=== PATIENT | male | born 1960 | race Native Hawaiian/Other Pacific Islander ===

== ENCOUNTER 2022-03-04 20:09 | Inpatient (IN) | payer OTHER ==
[~2022-03-04] VITALS: Ht 162.6 cm; Wt 59.0 kg
--- NOTE | 2022-03-04 20:25 | NUR ---
XRAY AT BEDSIDE.
--- NOTE | 2022-03-04 20:42 | NUR ---
LAB AT BEDSIDE.
[2022-03-04 21:00] LABS: HEMATOCRIT 49.8 % (36.7-47.1); MEAN CORPUSCULAR HEMOGLOBIN 22.2 uug (23.8-33.4); MEAN CORPUSCULAR VOLUME 71.4 fL (73.0-96.2); PLATELET COUNT (AUTO) 235 K/uL (152-348)
[2022-03-04 21:18] LABS: ALANINE AMINOTRANSFERASE 29 U/L (16-63); ALKALINE PHOSPHATASE 62 U/L (50-136); ASPARTATE AMINOTRANSFERASE 26 U/L (15-37); BILIRUBIN,DIRECT 0.1 mg/dL (0.0-0.2); BILIRUBIN,TOTAL 0.3 mg/dL (0.2-1.0); CHLORIDE 95 mmol/L (98-107); CREATININE 0.5 mg/dL (0.6-1.3); GLUCOSE 189 mg/dL (74-106); TOTAL PROTEIN, SERUM 7.7 g/dL (6.4-8.2); UREA NITROGEN, BLOOD 24 mg/dL (7-18)
[2022-03-04 21:25] LABS: CARBON DIOXIDE 40 mmol/L (21-32)
[2022-03-04] MEDS ORDERED: BISA10SU61 RC (21:37)
[2022-03-04] MEDS ORDERED: PRED20TA PO (21:37)
[2022-03-04] MEDS ORDERED: MAGN400O6 PO (21:37)
[2022-03-04] MEDS ORDERED: NA P133E RC (21:37)
[2022-03-04] MEDS ORDERED: lispro insulin SUBCUT (21:37)
[2022-03-04] MEDS ORDERED: [UNRECOGNIZED DRUG - MIXTURE] PO (21:37)
[2022-03-04] MEDS ORDERED: ACET-2154 PO (21:37)
[2022-03-04] MEDS ORDERED: IV NS 1000 ML 1,000 ML IV ONE (23:30)
[2022-03-04 23:44] LABS: ABG BASE EXCESS 7.2 mmol/L; ABG HCO3 37.7 mmol/L; ABG PCO2 81.8 mmHg (35.0-45.0); ABG PH 7.281 (7.350-7.450); ABG PO2 64.2 mmHg (75.0-100.0); ABG SITE RIGHT RADIAL; ABG TOTAL HEMOGLOBIN 15.9 G/dL (13.5-18.0); COHb 0.9 % (0.5-1.5); MetHb 0.3 % (0.0-1.5); O2Hb 91.2 % (94.0-97.0); VENT MODE Nasal Cannula
--- NOTE | 2022-03-04 23:50 | NUR ---
PT NOTED TO BE SOILED, PROPER PERINEAL CARE RENDERED. NOTED TO BE CLEAN AND DRY.
[2022-03-05] VITALS (58 sets, daily range): BP systolic 61–142; BP diastolic 37–83
[2022-03-05] MEDS ORDERED: methylPREDNISolone SOD SUCC 125 MG/2 ML VIAL IV ONE
[2022-03-05] MEDS ORDERED: methylPREDNISolone SOD SUCC 125 MG/2 ML VIAL ONE (00:11)
--- NOTE | 2022-03-05 01:36 | NUR ---
PT RESTING IN BED EYES CLOSED, BREATHING EVEN AND UNLABORED.
[2022-03-05] MEDS ORDERED: AZITHROMYCIN IV 500 MG in IV DEXTROSE 5% 250 ML IV ONE (01:45)
[2022-03-05] MEDS ORDERED: CEFTRIAXONE 1 G in IV DEXTROSE 5% 50 ML IV ONE (01:45)
[2022-03-05 01:59] LABS: ABG BASE EXCESS 5.8 mmol/L; ABG HCO3 37.6 mmol/L; ABG PCO2 95.3 mmHg (35.0-45.0); ABG PH 7.214 (7.350-7.450); ABG PO2 153.3 mmHg (75.0-100.0); ABG SITE LEFT RADIAL; ABG TOTAL HEMOGLOBIN 15.1 G/dL (13.5-18.0); COHb 0.9 % (0.5-1.5); CPAP,BG 6 cmH20; MetHb 0.4 % (0.0-1.5); VENT MODE BIPAP
[2022-03-05] MEDS ORDERED: CEFTRIAXONE /D5W 50ML IVPB **ER PYXIS IV ONE (02:03)
[2022-03-05] MEDS ORDERED: AZITHROMYCIN 500MG/ D5W 250ML IVPB **ER PYXIS ONLY IV ONE (02:03)
[2022-03-05] MEDS ORDERED: NOREPINEPHRINE BITARTRATE 4 MG/4 ML VIAL IV ONE (02:32)
[2022-03-05] MEDS ORDERED: PROPOFOL 100 ML ONE (02:37)
[2022-03-05] MEDS ORDERED: NOREPINEPHRINE BITARTRATE 8 MG in IV NORMAL SALINE 242 ML IV PRN (02:45)
--- NOTE | 2022-03-05 03:02 | NUR ---
LEVOPHED STARTED AT 0300 STARTED ON 0.1MCG/KG/MIN ON LT FA 20 G.
[2022-03-05] MEDS ORDERED: NOREPINEPHRINE BITARTRATE 8 MG in IV NORMAL SALINE 250 ML IV PRN (03:30)
[2022-03-05] MEDS ORDERED: IV D5 1/2 NS 1000 ML 1,000 ML IV PRN (03:30)
[2022-03-05] MEDS ORDERED: ONDANSETRON 4 MG/2 ML VIAL IV PRN (03:30)
[2022-03-05] MEDS ORDERED: DEXTROSE 50% 50 ML DISP.SYRIN IV PRN (03:30)
--- NOTE | 2022-03-05 03:30 | NUR ---
PT INTUBATED AT 0317, RT, DR. STOUT AND RN AT BEDSIDE. 22CM AT LIP. VENT SETTING: RR: 20 400 PEEP 5 50% TITRATE
[2022-03-05] MEDS ORDERED: PROPOFOL 100 ML IV PRN (04:00)
[2022-03-05] MEDS ORDERED: ALBUTEROL SULFATE 2.5 MG/3 ML NEBU ONE ×2 (04:18→07:12)
[2022-03-05] MEDS ORDERED: IPRATROPIUM BROMIDE 0.5 MG/2.5 ML NEBU ONE ×2 (04:18→07:12)
[2022-03-05] MEDS: ALBUTEROL SULFATE 2.5 MG/3 ML NEBU IH SCH ×6 (04:19→23:29)
[2022-03-05] MEDS: IPRATROPIUM BROMIDE 0.5 MG/2.5 ML NEBU NEB SCH ×6 (04:19→23:28)
[2022-03-05 05:03] LABS: ABG BASE EXCESS 5.6 mmol/L; ABG HCO3 28.9 mmol/L; ABG PCO2 37.8 mmHg (35.0-45.0); ABG PH 7.501 (7.350-7.450); ABG PO2 62.9 mmHg (75.0-100.0); ABG SITE LEFT RADIAL; ABG TOTAL HEMOGLOBIN 15.2 G/dL (13.5-18.0); COHb 1.2 % (0.5-1.5); MetHb 0.2 % (0.0-1.5); O2Hb 94.9 % (94.0-97.0); VENT MODE VENT - A/C; VT, ABG 400 mL
[2022-03-05] MEDS: BLOOD SUGAR DIAGNOSTIC 1 EACH STRIP VI SCH ×4 (06:00→23:52)
[2022-03-05] MEDS ORDERED: PIPERACILLIN SODIUM/TAZOBACTAM 3.375 G in IV DEXTROSE 5% 50 ML IV SCH (06:00)
--- NOTE | 2022-03-05 06:59 | NUR ---
GAVE REPORT TO MORNING SHIFT. PT NOTED TO BE IN BED, VSS. BREATHING EVEN AND UNLABORED, AFEBRILE.
[2022-03-05 07:19] LABS: HEMATOCRIT 45.7 % (36.7-47.1); MEAN CORPUSCULAR HEMOGLOBIN 22.5 uug (23.8-33.4); MEAN CORPUSCULAR VOLUME 71.5 fL (73.0-96.2); PLATELET COUNT (AUTO) 310 K/uL (152-348)
--- NOTE | 2022-03-05 07:20 | NUR ---
RECEIVED PT ON AC 16 400 +5 50% eETT 7.0 @ 22CM
[2022-03-05 07:31] LABS: ALANINE AMINOTRANSFERASE 26 U/L (16-63); ALKALINE PHOSPHATASE 61 U/L (50-136); ASPARTATE AMINOTRANSFERASE 30 U/L (15-37); BILIRUBIN,TOTAL 0.8 mg/dL (0.2-1.0); CARBON DIOXIDE 32 mmol/L (21-32); CHLORIDE 95 mmol/L (98-107); CREATININE 0.4 mg/dL (0.6-1.3); GLUCOSE 202 mg/dL (74-106); MAGNESIUM 1.8 mg/dL (1.8-2.4); PHOSPHOROUS 1.3 mg/dL (2.5-4.9); POTASSIUM 5.4 mmol/L (3.5-5.1); TOTAL PROTEIN, SERUM 7.7 g/dL (6.4-8.2); UREA NITROGEN, BLOOD 25 mg/dL (7-18)
[2022-03-05] MEDS: PIPERACILLIN SODIUM/TAZOBACTAM 3.375 G in IV DEXTROSE 5% 100 ML IV SCH ×2 (07:45→21:13)
[2022-03-05] MEDS ORDERED: PIPERACILLIN/TAZOBACTAM/D5W 50 ML IV ONE (07:58)
[2022-03-05 07:59] LABS: BAND % (MANUAL) 5 % (0-10); LYMPHOCYTES % (MANUAL) 9 % (20-40); NEUTROPHILS % (MANUAL) 86 % (42-75); THYROID STIMULATING HORMONE 0.461 mIU/mL (0.358-3.740)
--- NOTE | 2022-03-05 08:45 | NUR ---
REPORT WAS GIVEN TO CCU RN PT WAS TRANSFERED TO CCU ROOM #1.
--- NOTE | 2022-03-05 08:49 | NUR ---
Received pt. from Sharon DUMONT pt. On ventilator ETT 7.0 23LL A/C of 16, Tv 400, Peep +5 and FIO2 of 50%. Patient noted to be restless agitated scratching staff upon transferring propofol with coughing and gagging. propofol at this time running at 5mcg/kg/min. titration initiated for adequate sedation and transfer pt. from [facility] to bed. Patient received on Bilateral wrist restrains that were dcd at this time. Cardiac-cai pt. on Sinus tachycardia in the 120-128. sbp 101/68 levophed running ar 0.2mcg/kg/min. IV lines patent. will continue with care plan.
--- NOTE | 2022-03-05 09:47 | NUR ---
Attending notified of pt's arrival to the unit.
--- NOTE | 2022-03-05 09:55 | NUR ---
TITRATED FIO2 DOWN TO 45%. SPO2 100% HR119. NURSE MADE AWARE.
[2022-03-05] MEDS ORDERED: BISACODYL 10 MG SUPP.RECT RC PRN (10:30)
[2022-03-05] MEDS: PANTOPRAZOLE SODIUM 40 MG VIAL IV SCH (11:10)
[2022-03-05] MEDS: methylPREDNISolone SOD SUCC 40 MG/ML VIAL IV SCH ×3 (11:10→21:13)
[2022-03-05] MEDS: ENOXAPARIN SODIUM 40 MG/0.4 ML DISP.SYRIN SQ SCH (11:11)
[2022-03-05] MEDS: PROPOFOL 100 ML IV PRN ×2 (11:52→18:39)
[2022-03-05] MEDS ORDERED: SODIUM PHOSPHATE MM 15 MMOL in IV NORMAL SALINE 250 ML IV ONE (12:30)
[2022-03-05] MEDS: IV D5/ 0.9% NACL 1,000 ML IV PRN ×2 (12:36→22:20)
[2022-03-05] MEDS: INSULIN REGULAR, HUMAN 300 UNIT/3 ML VIAL SQ PRN ×3 (12:38→23:53)
[2022-03-05] MEDS: NOREPINEPHRINE BITARTRATE 8 MG in IV NORMAL SALINE 242 ML IV PRN (13:07)
[2022-03-05 15:15] LABS: *BILIRUBIN,URIN NEGATIVE (NEGATIVE); *CLARITY,URINE CLEAR (CLEAR); *COLOR,URINE YELLOW (YELLOW); *KETONES,URINE 2+ (NEGATIVE); *UROBILINOGEN,URINE 0.2 E.U./dl (NORMAL); LEUKOCYTE ESTERASE ,URINE NEGATIVE (NEGATIVE); NITRITE, URINE NEGATIVE (NEGATIVE); UGLUCOSE NEGATIVE (NEGATIVE)
[2022-03-05 15:16] LABS: *BLOOD, URINE TRACE (NEGATIVE)
[2022-03-05 15:20] LABS: WBC,URINE NONE SEEN /HPF (0-3)
[2022-03-05 15:21] LABS: BACTERIA,URINE FEW /HPF (NONE SEEN); SQUAMOUS EPITHELIAL CELL,UR FEW /HPF (NONE SEEN)
--- NOTE | 2022-03-05 16:10 | NUR ---
Picc line R.N. in the unit to insert line.
--- NOTE | 2022-03-05 16:39 | NUR ---
DOUGLASE picc line in place and as stated by Luz Elena PICC ramón Man.Zulay. PICC ready to be used.
[2022-03-06] VITALS (91 sets, daily range): BP systolic 73–155; BP diastolic 32–92
[2022-03-06] MEDS: ALBUTEROL SULFATE 2.5 MG/3 ML NEBU IH SCH ×6 (03:53→23:02)
[2022-03-06] MEDS: IPRATROPIUM BROMIDE 0.5 MG/2.5 ML NEBU NEB SCH ×6 (03:53→23:02)
--- NOTE | 2022-03-06 04:20 | NUR ---
PATIENT ON CONT BOTELLO VENT WITH 7.0 ET/TUBE IN PLACE AND SECURED WITH ANCHOR FAST, MOVE Q2 HOURS, PT IS SEDATED, NEB INLINE Q4 X 3 WITH ALBUTEROL/ ATROVENT TOLL WELL INLINE, SUCTION LIGHT PALE YELL TINGE SECRETIONS, AND SUCTION MOUTH WITH YANKAUER, NO VENT CHANGES MADE AT THIS TIME, VENT PLUGGED INTO RED OUTLET, ABG DUE BEFORE 0700, CHANGE HMNoé SANDHUP Addendum: 03/06/22 at 3483 by VAL NAVARRO RT Amended: Links added.
[2022-03-06] MEDS: PROPOFOL 100 ML IV PRN ×4 (04:42→23:12)
[2022-03-06 05:07] LABS: HEMATOCRIT 37.2 % (36.7-47.1); MEAN CORPUSCULAR HEMOGLOBIN 21.9 uug (23.8-33.4); MEAN CORPUSCULAR VOLUME 69.5 fL (73.0-96.2); PLATELET COUNT (AUTO) 236 K/uL (152-348)
[2022-03-06] MEDS: BLOOD SUGAR DIAGNOSTIC 1 EACH STRIP VI SCH ×3 (05:22→18:00)
[2022-03-06 05:24] LABS: CARBON DIOXIDE 32 mmol/L (21-32); CHLORIDE 105 mmol/L (98-107); CREATININE 0.3 mg/dL (0.6-1.3); GLUCOSE 234 mg/dL (74-106); MAGNESIUM 1.6 mg/dL (1.8-2.4); PHOSPHOROUS 2.4 mg/dL (2.5-4.9); POTASSIUM 2.9 mmol/L (3.5-5.1); UREA NITROGEN, BLOOD 17 mg/dL (7-18)
[2022-03-06] MEDS: INSULIN REGULAR, HUMAN 300 UNIT/3 ML VIAL SQ PRN ×3 (05:25→19:07)
[2022-03-06] MEDS: methylPREDNISolone SOD SUCC 40 MG/ML VIAL IV SCH ×3 (05:28→21:04)
[2022-03-06] MEDS: PIPERACILLIN SODIUM/TAZOBACTAM 3.375 G in IV DEXTROSE 5% 100 ML IV SCH ×3 (05:29→21:04)
[2022-03-06 05:54] LABS: ABG BASE EXCESS 4.1 mmol/L; ABG HCO3 26.9 mmol/L; ABG PCO2 34.5 mmHg (35.0-45.0); ABG SITE LEFT RADIAL; ABG TOTAL HEMOGLOBIN 13.1 G/dL (13.5-18.0); COHb 0.4 % (0.5-1.5); MetHb 0.3 % (0.0-1.5); O2Hb 99.1 % (94.0-97.0); VENT MODE VENT - A/C; VT, ABG 400 mL
--- NOTE | 2022-03-06 06:18 | NUR ---
ABG WAS DONE VENT CHANGE ; 06:12 , DECREASE FIO2 @ TO 30%, BASED ON ABG, ZAINA DUMONT. NOTIFIED .Debra SANDHUP Addendum: 03/06/22 at 0620 by VAL NAVARRO RT Amended: Links added.
--- NOTE | 2022-03-06 06:23 | NUR ---
Left pt. On ventilator ETT 7.0 23LL A/C of 16, Tv 400, Peep +5 and FIO2 of 30% saturation above 95%, no tachypnea. neuro-cai adequately sedated with propofol running at 50mcg/kg/min, pupils MANUEL. Cardiac-cai pt. on NSR to low sinus tachy, levophed running ar 0.08mcg/kg/min. NG-T clamped and awaiting feeding recommendations. calderon to gravity with minimal outpu. IV lines patent. will endorse for continuity of care.
--- NOTE | 2022-03-06 07:14 | NUR ---
Report given to Terri Graf.
[2022-03-06] MEDS ORDERED: POTASSIUM CHLORIDE 20 MEQ POWDER PACKET GT ONE (08:00)
[2022-03-06] MEDS: POTASSIUM CHLORIDE 50 ML IV SCH ×4 (08:35→11:52)
[2022-03-06] MEDS: PANTOPRAZOLE SODIUM 40 MG VIAL IV SCH (08:35)
[2022-03-06] MEDS: IV D5/ 0.9% NACL 1,000 ML IV PRN (08:36)
[2022-03-06] MEDS: ENOXAPARIN SODIUM 40 MG/0.4 ML DISP.SYRIN SQ SCH (08:36)
--- NOTE | 2022-03-06 10:35 | NUR ---
WOUND CARE CONSULT: PT PRESENTS WITH SCARRING TO SACRAL/BUTTOCKS AREA, TO LEFT INNER THIGH AND HEALING WOUND TO RT INNER THIGH, PRESENT ON ADMISSION.RECOMMENDATIONS MADE FOR SKIN PROTECTION AND WOUND CARE. DISCUSSED WITH NURSING STAFF. MD IN AGREEMENT WITH PLAN OF CARE.
[2022-03-06] MEDS: MAGNESIUM SULFATE/D5W 100 ML IV SCH ×2 (10:44→11:51)
[2022-03-06] MEDS ORDERED: REMEDY ESSENTIAL ZINC PASTE 113 GM TOP PRN (10:45)
--- NOTE | 2022-03-06 11:20 | NUR ---
Pt received on continuous mechanical ventilation via 7.0 ETT secured at 23cm @ the lip. Pt rec'd on Valles vent with ordered settings of A/C 16, VT 400, PEEP +5, FIO2 30% . Changed Rate to 14, per MD orders. JULIA Graf notified. Pt tolerating vent settings well. Suctioned moderated amounts of white thin secretions. Bag/valve/mask at bedside. HME changed. Vent plugged into emergency red outlet. Will continue to monitor.
[2022-03-06] MEDS: NOREPINEPHRINE BITARTRATE 8 MG in IV NORMAL SALINE 242 ML IV PRN (12:02)
[2022-03-06] MEDS ORDERED: POTASSIUM PHOSPHATE MM 7.5 MMOL in IV NORMAL SALINE 97.5 ML IV ONE (18:00)
--- NOTE | 2022-03-06 19:00 | NUR ---
Received report from JULIA Graf. Patient is sedated ET 7.0, LL23, attached to vent with the following settings AC 14, TV 400, PEEP 5, FiO2 30%, O2 sat 100%. SR on the monitor, HR 83. NG tube at L nare TF Glucerna 1.2 @10mls/hr, no gastric residual noted, tolerating well. IV site patent and flushed with ongoing fluids Propofol @50mcg/kg/min, Levophed @0.02mcg/kg/min, D5NS @100mls/hr. Nursing assessment done. Calero catheter draining well to gravity. Safety measures maintained at all times. Will continue to monitor closely.
--- NOTE | 2022-03-06 19:46 | NUR ---
Report given to JULIA Ramirez. SR ST at 107. Sedated and intubated; settings are as follows TV at 400, PEEP of 5, rate or 14 and FiO2 30%. NGT feeding Glucerna 1.2, tolerating well with small amount of residual. Calero care provided, urine output at minimum- clear and erika color. correction assessment done, no new skin break down noted. Wound care provided in the inner thigh. Safety and comfort measures maintained t/o shift. All meds given as ordered.
[2022-03-06] MEDS: REMEDY ESSENTIAL ZINC PASTE 113 GM TOP SCH (20:24)
--- NOTE | 2022-03-06 20:39 | NUR ---
Patient received orally intubated with 7.5 ET Tube, ~23cm Lip line. Currently tolerating ordered vent settings of AC 14, 400, +5peep, 30% FiO2. No signs or symptoms of respiratory distress noted at this time. Suctioned scant amounts of thin white secretions. Oral suction : thick moderate white. Inline treatments reviewed and administered without complications. Vent plugged in to red outlet, ambu bag at bedside. ET tube locations changed throughout shift for skin integrity. Alarms are on/audible. Will continue to monitor throughout shift.
--- NOTE | 2022-03-06 22:23 | NUR ---
Sputum specimen done and sent to lab c/o RT Russell.
[2022-03-07] VITALS (93 sets, daily range): BP systolic 61–161; BP diastolic 40–127
[2022-03-07] MEDS: BLOOD SUGAR DIAGNOSTIC 1 EACH STRIP VI SCH ×5 (00:26→23:39)
[2022-03-07] MEDS: INSULIN REGULAR, HUMAN 300 UNIT/3 ML VIAL SQ PRN ×5 (00:28→23:43)
--- NOTE | 2022-03-07 01:50 | NUR ---
Minimal UO noted, bladder scan done which revealed 70-90cc. Called [facility] and spoke with Ama Gross NP. Per KARENA Gross, to give NS 500ml bolus. Noted and carried out.
[2022-03-07] MEDS ORDERED: IV NORMAL SALINE 500 ML IV ONE (02:00)
[2022-03-07] MEDS: ALBUTEROL SULFATE 2.5 MG/3 ML NEBU IH SCH ×6 (02:59→22:59)
[2022-03-07] MEDS: IPRATROPIUM BROMIDE 0.5 MG/2.5 ML NEBU NEB SCH ×6 (02:59→22:59)
[2022-03-07] MEDS: IV D5/ 0.9% NACL 1,000 ML IV PRN ×2 (04:42→14:18)
[2022-03-07] MEDS: PROPOFOL 100 ML IV PRN ×5 (04:43→21:16)
[2022-03-07 04:58] LABS: HEMATOCRIT 35.5 % (36.7-47.1); MEAN CORPUSCULAR HEMOGLOBIN 21.6 uug (23.8-33.4); MEAN CORPUSCULAR VOLUME 69.1 fL (73.0-96.2); PLATELET COUNT (AUTO) 187 K/uL (152-348)
[2022-03-07 05:07] LABS: CARBON DIOXIDE 28 mmol/L (21-32); CHLORIDE 110 mmol/L (98-107); CREATININE 0.2 mg/dL (0.6-1.3); GLUCOSE 174 mg/dL (74-106); MAGNESIUM 1.9 mg/dL (1.8-2.4); PHOSPHOROUS 2.9 mg/dL (2.5-4.9); POTASSIUM 3.6 mmol/L (3.5-5.1); UREA NITROGEN, BLOOD 10 mg/dL (7-18)
[2022-03-07] MEDS: PIPERACILLIN SODIUM/TAZOBACTAM 3.375 G in IV DEXTROSE 5% 100 ML IV SCH ×3 (05:24→21:17)
[2022-03-07] MEDS: methylPREDNISolone SOD SUCC 40 MG/ML VIAL IV SCH ×3 (05:24→21:17)
--- NOTE | 2022-03-07 06:00 | NUR ---
TF Glucerna 1.2 off [id number].
[2022-03-07 06:13] LABS: ABG BASE EXCESS 1.1 mmol/L; ABG HCO3 25.6 mmol/L; ABG PCO2 40.5 mmHg (35.0-45.0); ABG PH 7.419 (7.350-7.450); ABG PO2 141.7 mmHg (75.0-100.0); ABG SITE RIGHT RADIAL; ABG TOTAL HEMOGLOBIN 12.5 G/dL (13.5-18.0); COHb 0.2 % (0.5-1.5); MetHb 0.3 % (0.0-1.5); O2Hb 98.6 % (94.0-97.0); VENT MODE VENT - A/C; VT, ABG 400 mL
--- NOTE | 2022-03-07 08:12 | NUR ---
PT.WAS SEEN BY WITH NEW ORDERS.
[2022-03-07] MEDS ORDERED: POTASSIUM CHLORIDE 20 MEQ POWDER PACKET GT ONE (08:15)
[2022-03-07] MEDS: PANTOPRAZOLE SODIUM 40 MG VIAL IV SCH (08:17)
[2022-03-07] MEDS: ENOXAPARIN SODIUM 40 MG/0.4 ML DISP.SYRIN SQ SCH (08:18)
[2022-03-07] MEDS: REMEDY ESSENTIAL ZINC PASTE 113 GM TOP SCH ×2 (08:18→20:38)
[2022-03-07] MEDS: NOREPINEPHRINE BITARTRATE 8 MG in IV NORMAL SALINE 242 ML IV PRN (20:57)
[2022-03-08] VITALS (62 sets, daily range): BP systolic 82–139; BP diastolic 46–84
[2022-03-08] MEDS: PROPOFOL 100 ML IV PRN ×2 (01:10→06:08)
--- NOTE | 2022-03-08 02:30 | NUR ---
0050 Patient noted to have SR with inverted T wave on the monitor. 0105 Stat EKG done c/o RT Deandra and placed on chart. 0115 Called [facility] and spoke with Ama Gross NP regarding patient's EKG result. Per Renato THURSTON, to order stat troponin. 020 Spoke with Dat from lab re: troponin 181. Will relay to Renato THURSTON. 0215 Called [employer] exchange to page international guest coordinator doctor Renato THURSTON re: troponin results. Awaiting for callback. 226 Received new orders from Renato THURSTON. Per Renato THURSTON, repeat troponin in 6 hours, lovenox 1mg/kg pharmacy to dose SC Q12hr. Noted and carried out.
[2022-03-08] MEDS ORDERED: ENOXAPARIN SODIUM 60 MG/0.6 ML DISP.SYRIN SQ SCH (03:00)
[2022-03-08] MEDS: IPRATROPIUM BROMIDE 0.5 MG/2.5 ML NEBU NEB SCH ×5 (03:01→19:54)
[2022-03-08] MEDS: ALBUTEROL SULFATE 2.5 MG/3 ML NEBU IH SCH ×6 (03:01→19:55)
[2022-03-08] MEDS: PIPERACILLIN SODIUM/TAZOBACTAM 3.375 G in IV DEXTROSE 5% 100 ML IV SCH (05:09)
[2022-03-08] MEDS: methylPREDNISolone SOD SUCC 40 MG/ML VIAL IV SCH ×3 (05:10→21:11)
[2022-03-08] MEDS: BLOOD SUGAR DIAGNOSTIC 1 EACH STRIP VI SCH ×4 (05:16→23:19)
[2022-03-08 05:18] LABS: CARBON DIOXIDE 29 mmol/L (21-32); CHLORIDE 108 mmol/L (98-107); CREATININE 0.3 mg/dL (0.6-1.3); GLUCOSE 249 mg/dL (74-106); POTASSIUM 4.2 mmol/L (3.5-5.1); UREA NITROGEN, BLOOD 11 mg/dL (7-18)
[2022-03-08] MEDS: INSULIN REGULAR, HUMAN 300 UNIT/3 ML VIAL SQ PRN ×4 (05:18→23:22)
[2022-03-08 05:22] LABS: MAGNESIUM 1.8 mg/dL (1.8-2.4); PHOSPHOROUS 3.2 mg/dL (2.5-4.9)
[2022-03-08 05:35] LABS: HEMATOCRIT 36.9 % (36.7-47.1); MEAN CORPUSCULAR HEMOGLOBIN 21.6 uug (23.8-33.4); MEAN CORPUSCULAR VOLUME 69.9 fL (73.0-96.2); PLATELET COUNT (AUTO) 183 K/uL (152-348)
--- NOTE | 2022-03-08 06:00 | NUR ---
TF Glucerna 1.2 off [id number].
--- NOTE | 2022-03-08 07:34 | NUR ---
Patienr received orally intubated with 7.5 ETT @ approx 23cm at the lip. Patient on given settings of AC 14, 400, +5, 30% Fio2. Oral care done and PRN sxn provided. Alarms on and audible, and Valles vent plugged in red outlets. Ambubag at bedside. Will continue to monitor t/o shift.
[2022-03-08] MEDS: PANTOPRAZOLE SODIUM 40 MG VIAL IV SCH (08:38)
[2022-03-08] MEDS: ENOXAPARIN SODIUM 60 MG/0.6 ML DISP.SYRIN SQ SCH ×2 (08:39→20:13)
[2022-03-08] MEDS: REMEDY ESSENTIAL ZINC PASTE 113 GM TOP SCH ×2 (08:41→20:13)
[2022-03-08] MEDS: GLUCERNA 1.2 1000ML LIQUID GT PRN (08:43)
--- NOTE | 2022-03-08 10:13 | NUR ---
Pt.was seen by . with new orders.
--- NOTE | 2022-03-08 10:30 | NUR ---
PER PROPOFOL WAS STOP AT 1005 FOR WEANING /CPAP/POSS EXTUBATION.ABG 1100
[2022-03-08 11:18] LABS: ABG BASE EXCESS 2.1 mmol/L; ABG HCO3 26.4 mmol/L; ABG PCO2 39.9 mmHg (35.0-45.0); ABG PH 7.438 (7.350-7.450); ABG PO2 137.7 mmHg (75.0-100.0); ABG SITE LEFT RADIAL; ABG TOTAL HEMOGLOBIN 12.7 G/dL (13.5-18.0); COHb 0.4 % (0.5-1.5); CPAP,BG 10 cmH20; MetHb 0.3 % (0.0-1.5); O2Hb 98.4 % (94.0-97.0); VENT MODE VENT - CPAP
[2022-03-08] MEDS: IV D5/ 0.9% NACL 1,000 ML IV PRN ×2 (11:37→21:42)
--- NOTE | 2022-03-08 11:40 | NUR ---
PT.EXTUBATED,TOLERATED WELL,NO S/S OF DISTRESS.
--- NOTE | 2022-03-08 11:40 | NUR ---
Patient extubated post ABG, and CPAP trial. Placed on 2LPM N/C. Will continue to monitor throughout shift.
--- NOTE | 2022-03-08 15:57 | NUR ---
NATALIE MAR SHAREPOINT WEB DEVELOPER was updated with pt.condition and plan of care
--- NOTE | 2022-03-08 16:20 | NUR ---
, WAS NOTIFIED, PT BECAME TACHYPNEIC HR 130'S SOB USING ACCES. MUSCLE FOR BREATHING.CARE OUT NEW ORDERS FOR BIPAP.
--- NOTE | 2022-03-08 22:00 | NUR ---
PM care done. Linen changed.
[2022-03-09] VITALS (23 sets, daily range): BP systolic 85–162; BP diastolic 49–95
[2022-03-09] MEDS: IPRATROPIUM BROMIDE 0.5 MG/2.5 ML NEBU NEB SCH ×7 (00:04→23:51)
[2022-03-09] MEDS: ALBUTEROL SULFATE 2.5 MG/3 ML NEBU IH SCH ×7 (00:04→23:51)
--- NOTE | 2022-03-09 04:14 | NUR ---
PATIENT HAS BEEN ON BI/PAP ALL FINISH OPENER, WITH MED, MASK, MOVING A LITTLE, BUT KEEPING MASK, ON , SETTINGS, 15/5, RR20, FIO2 @ 30%, STABLE, GOOD OXYGENATION, ADJUST MASK, NEB INLINE Q4 X 3 , STABLE .D MELANIE SANDHUP Addendum: 03/09/22 at 0416 by VAL NAVARRO RT Amended: Links added.
[2022-03-09] MEDS: methylPREDNISolone SOD SUCC 40 MG/ML VIAL IV SCH ×3 (05:08→21:16)
[2022-03-09] MEDS: BLOOD SUGAR DIAGNOSTIC 1 EACH STRIP VI SCH ×4 (05:14→23:31)
[2022-03-09] MEDS: INSULIN REGULAR, HUMAN 300 UNIT/3 ML VIAL SQ PRN ×4 (05:17→23:33)
[2022-03-09 05:48] LABS: CARBON DIOXIDE 35 mmol/L (21-32); CHLORIDE 106 mmol/L (98-107); CREATININE 0.2 mg/dL (0.6-1.3); GLUCOSE 150 mg/dL (74-106); POTASSIUM 3.9 mmol/L (3.5-5.1); UREA NITROGEN, BLOOD 13 mg/dL (7-18)
--- NOTE | 2022-03-09 06:30 | NUR ---
Lab called and spoke with Dat re: troponin 419. Called [facility] and spoke with Ama Gross ASSISTANT DIRECTOR OF PLANT OPERATIONS, with new orders. Per Renato, KARENA, order troponin 6hrs after last was drawn. Noted and carried out.
--- NOTE | 2022-03-09 06:41 | NUR ---
Patient left awake, on bipap machine, tolerating well, O2 sat 100%. VSS. NAD.
--- NOTE | 2022-03-09 07:10 | NUR ---
Received pt. on BIPAP 15/5, rate of 20 and FIO2 of 30%. no tachypnea or sob noted while on bipap. On NSR sbp within normal limits, no need of vasopressors. Neuro-cai pt. AAOx1. restless and attempting to pull IV lines with right hand. Currently on soft restrains. NG with feeding to be resumed. Calero catheter patent. Will continue to monitor.
--- NOTE | 2022-03-09 07:30 | NUR ---
Attempts to remove Restrains and pt. not following commands and not michelle as [facility]
[2022-03-09] MEDS: IV D5/ 0.9% NACL 1,000 ML IV PRN ×2 (07:41→18:14)
[2022-03-09] MEDS: PANTOPRAZOLE SODIUM 40 MG VIAL IV SCH (08:08)
[2022-03-09] MEDS: REMEDY ESSENTIAL ZINC PASTE 113 GM TOP SCH ×2 (08:08→20:20)
[2022-03-09] MEDS: ENOXAPARIN SODIUM 60 MG/0.6 ML DISP.SYRIN SQ SCH ×2 (08:09→20:23)
--- NOTE | 2022-03-09 09:20 | NUR ---
Patient taken off bipap and labor breathing and desaturation in the mid-80's use of accessory muscles, at this time pt. only tolerated oral care.
[2022-03-09] MEDS: GLUCERNA 1.2 1000ML LIQUID GT PRN (09:37)
--- NOTE | 2022-03-09 11:15 | NUR ---
Pulmonary services, Dr. Lei in the unit report given orders to continue with care plan received, as well as to run ABG stat due to labor breathing when off bipap.
[2022-03-09 11:17] LABS: ABG BASE EXCESS 6.1 mmol/L; ABG HCO3 31.2 mmol/L; ABG PCO2 47.1 mmHg (35.0-45.0); ABG PH 7.439 (7.350-7.450); ABG PO2 69.2 mmHg (75.0-100.0); ABG SITE LEFT RADIAL; ABG TOTAL HEMOGLOBIN 13.3 G/dL (13.5-18.0); COHb 0.6 % (0.5-1.5); MetHb 0.2 % (0.0-1.5); O2Hb 94.2 % (94.0-97.0); VENT MODE BIPAP
--- NOTE | 2022-03-09 11:17 | NUR ---
Attending Sven Rehman in the unit to see and examine pt. report given orders to continue with care plan and to intubate pt. if necessary.
--- NOTE | 2022-03-09 20:00 | NUR ---
pt on bed on continuous pulse ox; on bilateral mittens for safety; VSS; afebrile.
--- NOTE | 2022-03-09 20:49 | NUR ---
PATIENT ON CONT BI/PAP WITH MED MASK ,ADJUST SEVERAL TIMES, SETTINGS, 15/5,RR20,30%, PT MOVES AROUND A BIT, BUT KEEPS MASK ON, MAINTAINING GOOD OXYGENATION, WITH NEB INLINE WITH ALBUTEROL/ ATROVENT Q4 HOURS; , NO CHANGES MADE AT THIS TIME ,PT STABLE. Debra SANDHUP Addendum: 03/09/22 at 2051 by VAL NAVARRO RT Amended: Links added.
[2022-03-10] VITALS (23 sets, daily range): BP systolic 119–177; BP diastolic 69–111
[2022-03-10] MEDS: IPRATROPIUM BROMIDE 0.5 MG/2.5 ML NEBU NEB SCH ×5 (03:35→20:46)
[2022-03-10] MEDS: ALBUTEROL SULFATE 2.5 MG/3 ML NEBU IH SCH ×5 (03:36→20:46)
[2022-03-10] MEDS: IV D5/ 0.9% NACL 1,000 ML IV PRN ×2 (04:00→14:17)
--- NOTE | 2022-03-10 04:30 | NUR ---
episode of desaturation after his AM bath at 60% ; RT Erik bump his BiPap fiO2 to 35% HHN given and presently [id number]%
[2022-03-10] MEDS: ACETAMINOPHEN 650 MG/20.3 ML LIQUID UDC GT PRN ×2 (04:49→17:32)
--- NOTE | 2022-03-10 05:00 | NUR ---
patient started to desaturated to 70s after AM bath; pt did exert effort in moving; had a small vomitus; pt off bipap to prevent aspiration; placed back on 5L but only saturated in the 60%; RT Erik placed back on BiPap and now saturating 97% Addendum: 03/10/22 at 0509 by KING OWEN RN not for this pt
[2022-03-10] MEDS: methylPREDNISolone SOD SUCC 40 MG/ML VIAL IV SCH ×3 (05:11→21:17)
[2022-03-10 05:22] LABS: CARBON DIOXIDE 35 mmol/L (21-32); CHLORIDE 99 mmol/L (98-107); CREATININE < 0.2 mg/dL (0.6-1.3); GLUCOSE 233 mg/dL (74-106); POTASSIUM 3.5 mmol/L (3.5-5.1); UREA NITROGEN, BLOOD 12 mg/dL (7-18)
--- NOTE | 2022-03-10 05:24 | NUR ---
PT ON BI/PAP , AFTER SAY 314 PT WOULD DE SAT AT TIMES, REPOSITION MASK, PT THEN PLACE ON FIO2 @ 35% KEEP SAT ABOVE 90%, LOUIE Murray NOTIFIED, SAT 90-93% AT 0515. Debra NAVARRO RCP Addendum: 03/10/22 at 0525 by VAL NAVARRO RT Amended: Links added.
[2022-03-10] MEDS: INSULIN REGULAR, HUMAN 300 UNIT/3 ML VIAL SQ PRN ×2 (05:25→17:41)
[2022-03-10] MEDS: BLOOD SUGAR DIAGNOSTIC 1 EACH STRIP VI SCH ×4 (05:25→23:38)
[2022-03-10 05:29] LABS: HEMATOCRIT 42.8 % (36.7-47.1); MEAN CORPUSCULAR VOLUME 69.5 fL (73.0-96.2); PLATELET COUNT (AUTO) 184 K/uL (152-348)
--- NOTE | 2022-03-10 07:00 | NUR ---
Received pt. on BIPAP with saturation 889-92%, patient noted to be restless agitated. Cardiac-cai on ST in the upper teens, with sbp within desired limits. NG-T clumped with feeding to be resumed at goal therapy. At this time with no residuals. Restrains BUE, as reported pt. removing lines and treatment, and not following commands. IV line patent. Will continue with care plan.
--- NOTE | 2022-03-10 07:35 | NUR ---
Patient with period of desaturation 77-80"s tachypnea in the upper 30's. , heart rate in the upper 130's low 140's RT Rashid in the unit and at this time FIO2 increased oral care provided, with thick mucous plugs removed. Due to distress left on increased FIO2. Will continue to monitor. Addendum: 03/10/22 at 0843 by ZAINA CORTES RN FIO@ increased to 50%.
[2022-03-10] MEDS: REMEDY ESSENTIAL ZINC PASTE 113 GM TOP SCH ×2 (08:09→20:58)
[2022-03-10] MEDS: ENOXAPARIN SODIUM 60 MG/0.6 ML DISP.SYRIN SQ SCH ×2 (08:09→20:57)
[2022-03-10] MEDS: PANTOPRAZOLE SODIUM 40 MG VIAL IV SCH (08:09)
--- NOTE | 2022-03-10 08:27 | NUR ---
Patient see by cardiology services, Dr. Yan report given and orders to continue with care plan received.
[2022-03-10] MEDS: GLUCERNA 1.2 1000ML LIQUID GT PRN (10:51)
--- NOTE | 2022-03-10 10:56 | NUR ---
Patient seen by Director Of Oncology Dr. Lei. report given and orders received. At this time noted how restless and agitated pt. is, HR ST in the 130's. rr 29.
[2022-03-10] MEDS ORDERED: LORAZEPAM 2 MG/1 ML VIAL IV ONE (11:00)
[2022-03-10] MEDS ORDERED: LORAZEPAM 2 MG/1 ML VIAL IV PRN (11:00)
[2022-03-10] MEDS: LORAZEPAM 0.5 MG TABLET GT PRN ×2 (17:32→21:34)
[2022-03-10] MEDS ORDERED: hydrALAZINE HCL 20 MG/1 ML VIAL IV PRN (18:30)
--- NOTE | 2022-03-10 21:17 | NUR ---
PATIENT ON CONT BI/PAP WITH MED. MASK, ADJUST SEVERAL TIMES, SETTINGS, 1/5, RR20, FIO2 @ 40%, PT GETS RESTLESS AT TIMES, BUT KEEPS MASK ON, NEB INLINE X 3 WITH ALBUTEROL/ ATROVENT, TOLL WELL, NO CHANGES MADE AT THIS TIME, WILL MONITOR CLOSELY. Debra SANDHUP Addendum: 03/10/22 at 2119 by VAL NAVARRO RT Amended: Links added.
--- NOTE | 2022-03-10 21:20 | NUR ---
pt agitated, SBP 160's Hydralazine 10 mg IVP given We'll monitor response.
[2022-03-11] VITALS (37 sets, daily range): BP systolic 62–168; BP diastolic 41–108
[2022-03-11] MEDS: IPRATROPIUM BROMIDE 0.5 MG/2.5 ML NEBU NEB SCH ×8 (00:05→23:16)
[2022-03-11] MEDS: ALBUTEROL SULFATE 2.5 MG/3 ML NEBU IH SCH ×8 (00:06→23:16)
[2022-03-11] MEDS: IV D5/ 0.9% NACL 1,000 ML IV PRN ×3 (00:13→21:43)
[2022-03-11 05:17] LABS: HEMATOCRIT 42.5 % (36.7-47.1); MEAN CORPUSCULAR VOLUME 68.9 fL (73.0-96.2); PLATELET COUNT (AUTO) 184 K/uL (152-348)
[2022-03-11 05:23] LABS: CARBON DIOXIDE 36 mmol/L (21-32); CHLORIDE 100 mmol/L (98-107); CREATININE 0.4 mg/dL (0.6-1.3); GLUCOSE 229 mg/dL (74-106); POTASSIUM 3.3 mmol/L (3.5-5.1); UREA NITROGEN, BLOOD 11 mg/dL (7-18)
[2022-03-11] MEDS: methylPREDNISolone SOD SUCC 40 MG/ML VIAL IV SCH ×3 (06:03→21:43)
[2022-03-11] MEDS: BLOOD SUGAR DIAGNOSTIC 1 EACH STRIP VI SCH ×3 (06:04→17:48)
[2022-03-11] MEDS: INSULIN REGULAR, HUMAN 300 UNIT/3 ML VIAL SQ PRN ×3 (06:06→17:50)
--- NOTE | 2022-03-11 07:00 | NUR ---
Received pt. on BIPAP 15/5 rate of 20, and FIO2 40%, saturation 95-98%. patient restless agitated. Neuro-cai AAOx1. on BUE restrains due to continuous attempts to removed treatment. Calero to gravity. IV line patent. NG-t placement confirmed via auscultation, with feeding to be resumed. Safety measures implemented, will continue with care plan.
--- NOTE | 2022-03-11 07:50 | NUR ---
RT Ronan at bedside and at this time pt. removed from BIPAP and placed on NC 6L. and for the next 40 minutes pt. saturation above 94%. pt. noticed to use accessory muscles and at times noted to be gasping for air. HR rate in the 130's-140's. RR in the upper 30's. and at 0820 due to desaturation down in the 81%. Patient placed back on BIPAP with same settings.
[2022-03-11] MEDS: LORAZEPAM 0.5 MG TABLET GT PRN (07:52)
[2022-03-11] MEDS: PANTOPRAZOLE SODIUM 40 MG VIAL IV SCH (08:00)
[2022-03-11] MEDS: ENOXAPARIN SODIUM 60 MG/0.6 ML DISP.SYRIN SQ SCH (08:00)
[2022-03-11] MEDS: REMEDY ESSENTIAL ZINC PASTE 113 GM TOP SCH ×2 (08:03→20:15)
[2022-03-11] MEDS: GLUCERNA 1.2 1000ML LIQUID GT PRN (08:15)
[2022-03-11] MEDS: PANTOPRAZOLE ORAL SUSPENSION 40 MG SUSPDR.PKT GT SCH (09:00)
[2022-03-11] MEDS: NOREPINEPHRINE BITARTRATE 8 MG in IV NORMAL SALINE 242 ML IV PRN (09:21)
[2022-03-11 09:34] LABS: ABG BASE EXCESS 5.7 mmol/L; ABG HCO3 30.9 mmol/L; ABG PCO2 46.8 mmHg (35.0-45.0); ABG PH 7.437 (7.350-7.450); ABG PO2 65.6 mmHg (75.0-100.0); ABG SITE LEFT RADIAL; ABG TOTAL HEMOGLOBIN 13.3 G/dL (13.5-18.0); COHb 0.5 % (0.5-1.5); MetHb 0.3 % (0.0-1.5); O2Hb 92.8 % (94.0-97.0); VENT MODE BIPAP 15/5
--- NOTE | 2022-03-11 09:40 | NUR ---
Patient seen by technician chemical cleaning Dr. Becker report given and informed of pt's unstable condition and now back on levophed drip.
--- NOTE | 2022-03-11 09:40 | NUR ---
Attending notified of latest ABG results and Palm Gatherer also informed awaiting orders.
--- NOTE | 2022-03-11 09:42 | NUR ---
A message from pump machine operator Dr. Lei no orders received and at this time I was informed that He'll be here at around 1100.
--- NOTE | 2022-03-11 10:52 | NUR ---
Patient seen by pulmonary services, Dr. Lei. report given.
[2022-03-11] MEDS ORDERED: ASPIRIN 300 MG RECTAL SUPP RC SCH (13:30)
[2022-03-11] MEDS: POTASSIUM CHLORIDE 50 ML IV SCH ×2 (16:06→17:29)
--- NOTE | 2022-03-11 18:03 | NUR ---
PT REC'D ON BiPAP TOLERATING SETTINGS WELL, TRIAL OFF BiPAP DONE WITH PT DESAT AND TACHYPNEA NOTED AFTER 40MINS, PT PLACED BACK TO BiPAP WITH PREVIOUS SETTINGS, MASK REPOSITIONED SEVERAL TIMES DURING SHIFT FOR SKIN ASSESSMENT, SKIN INTACT REDNESS NOTED AROUND MASK AREA, GEL PAD IN PLACE. CONT WITH CURRENT RT ORDERS.
--- NOTE | 2022-03-11 19:30 | NUR ---
respiratory therapist at b/s and RN at b/s ,patients rr 28 ,saturation 87% on bipap fio2 40% . suction patient via mouth and deep suction via the right and left nares ,with thick michaud to blood tinged secretions. oral care done ,respiratory therapist placed patient on fio2 at 80% and will continue to monitor oxygenation . saturation improved after suctioning rr 21 saturation 98%.
--- NOTE | 2022-03-11 20:30 | NUR ---
flushed ngt tube patient ,very minimal residual patient on Glucerna 1.2 at 50 ml/hr .hob up and aspiration precaution observed.
--- NOTE | 2022-03-11 22:00 | NUR ---
pm care done bath patient and changed soiled linens and gown, z guard applied to sacral and bilateral groin area . turned and reposition patient offloaded back with pillows .
--- NOTE | 2022-03-11 23:16 | NUR ---
RECEIVED PATIENT ON BiPAP. TITRATED FiO2 TO 100% EARLIER DUE TO LOW SPO2. SUCTIONED PATIENT VIA NT. WILL TITRATE DOWN THROUGHOUT SHIFT. TOLERATING BiPAP SETTINGS WELL. PROCTECTA GEL IS IN PLACE TO PROTECT SKIN. TOLERATING HHN TX'S WELL WITH NO ADVERSE REACTIONS. NO SOB NOTED AT THIS TIME. WILL CONTINUE TO MONITOR.
[2022-03-12] VITALS (26 sets, daily range): BP systolic 79–182; BP diastolic 49–101
--- NOTE | 2022-03-12 | NUR ---
fingerstick done blood sugar 185 given ISS ,see emar .
[2022-03-12] MEDS: BLOOD SUGAR DIAGNOSTIC 1 EACH STRIP VI SCH ×4 (00:25→19:30)
[2022-03-12] MEDS: INSULIN REGULAR, HUMAN 300 UNIT/3 ML VIAL SQ PRN ×4 (00:26→19:32)
--- NOTE | 2022-03-12 03:30 | NUR ---
am care done ,bath patient ,changed soiled linens and gown Calero care done .
[2022-03-12] MEDS: ALBUTEROL SULFATE 2.5 MG/3 ML NEBU IH SCH ×5 (03:39→19:05)
[2022-03-12] MEDS: IPRATROPIUM BROMIDE 0.5 MG/2.5 ML NEBU NEB SCH ×5 (03:39→19:05)
--- NOTE | 2022-03-12 05:00 | NUR ---
patient noted to be labored breathing ,breathing using accessory muscle ,lethargic ,RR 28,SATURATION 84. called respiratory therapist stat oral suction done deep suction patient ,obtained thick mucus plugs bloody secretions ,lavage patient the suction more thick secretion obtained .fio2 increase to 100% patient now RR IS 23 SATURATION 100%.
[2022-03-12] MEDS: methylPREDNISolone SOD SUCC 40 MG/ML VIAL IV SCH ×3 (05:09→21:14)
[2022-03-12 05:22] LABS: HEMATOCRIT 40.7 % (36.7-47.1); MEAN CORPUSCULAR VOLUME 69.5 fL (73.0-96.2); PLATELET COUNT (AUTO) 202 K/uL (152-348)
[2022-03-12 05:28] LABS: CARBON DIOXIDE 35 mmol/L (21-32); CHLORIDE 102 mmol/L (98-107); CREATININE 0.3 mg/dL (0.6-1.3); GLUCOSE 198 mg/dL (74-106); POTASSIUM 3.4 mmol/L (3.5-5.1); UREA NITROGEN, BLOOD 11 mg/dL (7-18)
[2022-03-12] MEDS: ACETAMINOPHEN 650 MG/20.3 ML LIQUID UDC GT PRN (05:42)
[2022-03-12] MEDS: IV D5/ 0.9% NACL 1,000 ML IV PRN ×2 (08:22→21:13)
[2022-03-12] MEDS: ENOXAPARIN SODIUM 40 MG/0.4 ML DISP.SYRIN SQ SCH (08:30)
[2022-03-12] MEDS: GLUCERNA 1.2 1000ML LIQUID GT PRN (08:33)
[2022-03-12] MEDS: PANTOPRAZOLE ORAL SUSPENSION 40 MG SUSPDR.PKT GT SCH (08:34)
[2022-03-12] MEDS: POTASSIUM CHLORIDE 50 ML IV SCH ×4 (08:37→10:43)
[2022-03-12] MEDS: REMEDY ESSENTIAL ZINC PASTE 113 GM TOP SCH ×2 (09:55→20:02)
--- NOTE | 2022-03-12 10:16 | NUR ---
Attending CLAIR Mckeon in the unit to see and examine pt. report given no new orders received. Will continue with care plan.
--- NOTE | 2022-03-12 15:10 | NUR ---
At this time pt. off bipap and placed on NC 3Liters saturation of 98%. shallow and slightly labor breathing noted.
--- NOTE | 2022-03-12 15:55 | NUR ---
Pt's heart in the 130's-140's with labor breathing and use of accessory muscles saturation of 97% and pt. stating "I'm feeling tired".
--- NOTE | 2022-03-12 16:12 | NUR ---
Patient back on BIPAP at this time.
[2022-03-13] VITALS (22 sets, daily range): BP systolic 98–147; BP diastolic 58–84
[2022-03-13] MEDS: ALBUTEROL SULFATE 2.5 MG/3 ML NEBU IH SCH ×7 (00:17→20:22)
[2022-03-13] MEDS: IPRATROPIUM BROMIDE 0.5 MG/2.5 ML NEBU NEB SCH ×7 (00:17→20:22)
[2022-03-13] MEDS: BLOOD SUGAR DIAGNOSTIC 1 EACH STRIP VI SCH ×5 (00:40→23:14)
[2022-03-13] MEDS: INSULIN REGULAR, HUMAN 300 UNIT/3 ML VIAL SQ PRN ×5 (00:43→23:16)
[2022-03-13] MEDS: methylPREDNISolone SOD SUCC 40 MG/ML VIAL IV SCH ×3 (05:01→21:20)
[2022-03-13 05:04] LABS: HEMATOCRIT 38.3 % (36.7-47.1); MEAN CORPUSCULAR HEMOGLOBIN 21.7 uug (23.8-33.4); MEAN CORPUSCULAR VOLUME 69.3 fL (73.0-96.2); PLATELET COUNT (AUTO) 204 K/uL (152-348)
[2022-03-13 05:07] LABS: CARBON DIOXIDE 35 mmol/L (21-32); CHLORIDE 101 mmol/L (98-107); CREATININE 0.3 mg/dL (0.6-1.3); GLUCOSE 211 mg/dL (74-106); POTASSIUM 3.9 mmol/L (3.5-5.1); UREA NITROGEN, BLOOD 13 mg/dL (7-18)
[2022-03-13 05:53] LABS: ABG BASE EXCESS 9.4 mmol/L; ABG HCO3 34.1 mmol/L; ABG PCO2 46.7 mmHg (35.0-45.0); ABG PH 7.481 (7.350-7.450); ABG PO2 65.6 mmHg (75.0-100.0); ABG SITE RIGHT RADIAL; ABG TOTAL HEMOGLOBIN 12.6 G/dL (13.5-18.0); COHb 0.3 % (0.5-1.5); MetHb 0.5 % (0.0-1.5); O2Hb 93.9 % (94.0-97.0); VENT MODE BIPAP
--- NOTE | 2022-03-13 06:20 | NUR ---
FIO2 increased to 50%.
[2022-03-13] MEDS: IV D5/ 0.9% NACL 1,000 ML IV PRN ×2 (07:08→18:29)
[2022-03-13] MEDS: PANTOPRAZOLE ORAL SUSPENSION 40 MG SUSPDR.PKT GT SCH (08:27)
[2022-03-13] MEDS: ENOXAPARIN SODIUM 40 MG/0.4 ML DISP.SYRIN SQ SCH (08:28)
[2022-03-13] MEDS: REMEDY ESSENTIAL ZINC PASTE 113 GM TOP SCH ×2 (08:28→20:03)
[2022-03-13] MEDS: GLUCERNA 1.2 1000ML LIQUID GT PRN (08:50)
--- NOTE | 2022-03-13 09:15 | NUR ---
PT.WAS SEEN BY JOSEPH HERNANDEZ MD
--- NOTE | 2022-03-13 10:00 | NUR ---
PT.WAS SEEN BY MARICHUY NEUMANN WITH NEW ORDERERS.
--- NOTE | 2022-03-13 11:10 | NUR ---
PT.WAS SEEN BY HARRIET MAE MD
--- NOTE | 2022-03-13 19:00 | NUR ---
Received report. Patient is awake, alert, able to talk in sentences. Denies pain at this time. SR on the monitor, HR 100, BP 119/65. NG TF Glucerna 1.2 @50mls/hr, no gastric residual noted. On Bipap I:E 15/5, RR 20, FiO2 50%. Oral care done every 2 hours. Turn and repositioned every 2 hours. IV ADARSH PICC line with ongoing D5NS @100mls/hr. Calero catheter draining well to gravity. Will continue to monitor closely.
--- NOTE | 2022-03-13 19:30 | NUR ---
Skin tear, redness noted at the tip of the nose, covered with mepilex. Wound photo taken and placed to chart.
--- NOTE | 2022-03-13 21:27 | NUR ---
PATIENT ON BI/PAP CONT WITH NASAL PROTECTIVE GEL ON, SETTINGS, 15/5, RR20, FIO2 @ 50%, TAKE OFF AT TIMES , SUCTION, VERY CONGESTED, LIGHT PALE YELL TINGE SECRETIONS, AND SUCTION MOUTH WITH YANKAUER, ADJUST MASK AT TIMES, DOING OK, NEB INLINE X 2 WITH ALBUTEROL/ ATROVENT , NO CHANGES MADE .Debra SANDHUP Addendum: 03/13/22 at 2130 by VAL NAVARRO RT Amended: Links added.
[2022-03-14] VITALS (23 sets, daily range): BP systolic 109–163; BP diastolic 53–113
[2022-03-14] MEDS: IPRATROPIUM BROMIDE 0.5 MG/2.5 ML NEBU NEB SCH ×6 (02:59→23:40)
[2022-03-14] MEDS: ALBUTEROL SULFATE 2.5 MG/3 ML NEBU IH SCH ×6 (02:59→23:40)
--- NOTE | 2022-03-14 03:30 | NUR ---
AM care done. Linen changed.
[2022-03-14] MEDS: IV D5/ 0.9% NACL 1,000 ML IV PRN (04:59)
[2022-03-14] MEDS: methylPREDNISolone SOD SUCC 40 MG/ML VIAL IV SCH ×2 (05:17→21:08)
[2022-03-14 05:26] LABS: HEMATOCRIT 38.4 % (36.7-47.1); MEAN CORPUSCULAR VOLUME 69.1 fL (73.0-96.2); PLATELET COUNT (AUTO) 231 K/uL (152-348)
[2022-03-14] MEDS: BLOOD SUGAR DIAGNOSTIC 1 EACH STRIP VI SCH ×4 (05:38→23:42)
[2022-03-14] MEDS: INSULIN REGULAR, HUMAN 300 UNIT/3 ML VIAL SQ PRN ×3 (05:46→23:43)
[2022-03-14 05:55] LABS: CARBON DIOXIDE 37 mmol/L (21-32); CHLORIDE 99 mmol/L (98-107); CREATININE < 0.2 mg/dL (0.6-1.3); GLUCOSE 228 mg/dL (74-106); POTASSIUM 3.6 mmol/L (3.5-5.1); UREA NITROGEN, BLOOD 12 mg/dL (7-18)
[2022-03-14 05:59] LABS: ABG BASE EXCESS 8.9 mmol/L; ABG HCO3 34.2 mmol/L; ABG PCO2 49.4 mmHg (35.0-45.0); ABG PH 7.458 (7.350-7.450); ABG SITE LEFT RADIAL; COHb 0.4 % (0.5-1.5); MetHb 0.1 % (0.0-1.5); O2Hb 97.2 % (94.0-97.0); VENT MODE BIPAP
--- NOTE | 2022-03-14 06:00 | NUR ---
TF Glucerna 1.2 off [id number].
--- NOTE | 2022-03-14 07:45 | NUR ---
Dr Becker at bedside, report given, with new orders, to do Hi Flow. Notified RT.
--- NOTE | 2022-03-14 08:00 | NUR ---
Turned back TF Glucerna 1.2 @50mls/hr, no gastric residual noted.
[2022-03-14] MEDS: PANTOPRAZOLE ORAL SUSPENSION 40 MG SUSPDR.PKT GT SCH (08:02)
[2022-03-14] MEDS: REMEDY ESSENTIAL ZINC PASTE 113 GM TOP SCH ×2 (08:02→20:37)
[2022-03-14] MEDS: ENOXAPARIN SODIUM 40 MG/0.4 ML DISP.SYRIN SQ SCH (08:05)
--- NOTE | 2022-03-14 08:20 | NUR ---
Placed on Hi Flow @ 40L, FiO2 50% c/o RT Kvng, tolerating well, O2 sat 97%. VSS. NAD.
--- NOTE | 2022-03-14 12:32 | NUR ---
I assumed the care of the patient at 8:40am from outgoing RN. Patient is alert and awake and able to make needs known. Patient was placed high flow oxygen at 08:45 but he did not tolerate the high-flow. Patient became diaphoretic, restless, tachycardic and hypertensive. see vital signs flow-sheet for details. Rt placed patient back on continuous Bipap at 1010am. During the weaning trials, patient was agitated and removed his NGT. Tube feeding stopped NGT replaced and confirmed via auscultation. Ashleigh Boo and Insulation Worker Interior Surface Dr. Reid at the bedside. IV fluid stopped CXR done to confirm placement of the NGT. Addendum: 03/14/22 at 1717 by LILI ESPITIA RN Chest X- Ray revealed that NG tube erminates in the expected location of the stomach and the location in the stomach is adequate. Pt tube feeding Jevity 1.2 was resumed at 1500 with Jevity 1.2 running at 50 MLs.
--- NOTE | 2022-03-14 18:30 | NUR ---
Blood Glucose at 1200 Noon on 03/14/22 was not covered with Insulin sliding scale because patient was NPO and he accidentally removed his NGT. Pt's Blood glucose at 1800 was 138 which was covered with 2 units of insulin via sliding scale because another NGT had been inserted and placement was confirmed by Chest X-ray and tube feeding restarted. At about 1600 patients son was visiting with another linseed oil refiner. Pt and son were watching basketball. He became agitated because he was trying to talk to them and they could not understand what he was saying. BP elevated 154/81. Son left. I will monitor BP and endorse to oncoming shift to see if any interventions are necessary.
--- NOTE | 2022-03-14 23:58 | NUR ---
PATIENT ON CONT BIPAP WITH FULL MASK, ADJUST SEVERAL TIMES, WITH SETTINGS. 15/5 ,RR20, FIO2 40% , PT AWAKE AT TIMES, PULL OFF TO REST HIS NOSE , WITH NASAL GEL ON, REPOSITION MASK AT TIMES, SUCTION LIGHT PALE YELL TINGE SECRETIONS, NO CHANGES MADE ON BI/PAP NEB INLINE WITH ALBUTEROL/ ATROVENT X 3 Q4 HOURS. Debra SANDHUP Addendum: 03/15/22 at 0001 by VAL NAVARRO RT Amended: Links added.
[2022-03-15] VITALS (24 sets, daily range): BP systolic 82–145; BP diastolic 52–85
[2022-03-15] MEDS: ACETAMINOPHEN 650 MG/20.3 ML LIQUID UDC GT PRN (02:44)
[2022-03-15] MEDS: LORAZEPAM 0.5 MG TABLET GT PRN ×2 (02:44→21:20)
[2022-03-15] MEDS: IPRATROPIUM BROMIDE 0.5 MG/2.5 ML NEBU NEB SCH ×6 (03:23→23:34)
[2022-03-15] MEDS: ALBUTEROL SULFATE 2.5 MG/3 ML NEBU IH SCH ×6 (03:24→23:34)
[2022-03-15 04:54] LABS: HEMATOCRIT 39.6 % (36.7-47.1); MEAN CORPUSCULAR HEMOGLOBIN 21.6 uug (23.8-33.4); MEAN CORPUSCULAR VOLUME 69.4 fL (73.0-96.2); PLATELET COUNT (AUTO) 224 K/uL (152-348)
[2022-03-15 05:03] LABS: CARBON DIOXIDE 36 mmol/L (21-32); CHLORIDE 94 mmol/L (98-107); CREATININE 0.3 mg/dL (0.6-1.3); GLUCOSE 275 mg/dL (74-106); UREA NITROGEN, BLOOD 11 mg/dL (7-18)
[2022-03-15 05:15] LABS: NEUTROPHILS % (MANUAL) 0 % (42-75)
[2022-03-15] MEDS: BLOOD SUGAR DIAGNOSTIC 1 EACH STRIP VI SCH ×3 (05:36→17:09)
[2022-03-15] MEDS: INSULIN REGULAR, HUMAN 300 UNIT/3 ML VIAL SQ PRN ×3 (05:38→17:12)
--- NOTE | 2022-03-15 06:00 | NUR ---
Pt rested well in between care: AM bath done; remains and tolerated BiPap; needs attended; safety maintianed; continue to monitor; continue plan of care
[2022-03-15 06:13] LABS: ABG BASE EXCESS 11.4 mmol/L; ABG HCO3 37.3 mmol/L; ABG PCO2 53.5 mmHg (35.0-45.0); ABG PH 7.461 (7.350-7.450); ABG PO2 97.7 mmHg (75.0-100.0); ABG SITE LEFT RADIAL; ABG TOTAL HEMOGLOBIN 13.9 G/dL (13.5-18.0); COHb 0.6 % (0.5-1.5); MetHb 0.1 % (0.0-1.5); O2Hb 97.4 % (94.0-97.0); VENT MODE BIPAP
--- NOTE | 2022-03-15 07:05 | NUR ---
Pt received on BIPAP with Medium mask, with settings of 15/5, Rate 20, FIO2 40%. Periodically removed BIPAP mask to alleviate pressure from face and nose. Changed mask to Large and applied mepelex to open sore on nose. Oral care done. Txs given as ordered Q4 with Albuterol/Atrovent. No adverse reactions noted.
[2022-03-15] MEDS: methylPREDNISolone SOD SUCC 40 MG/ML VIAL IV SCH ×2 (08:02→20:38)
[2022-03-15] MEDS: PANTOPRAZOLE ORAL SUSPENSION 40 MG SUSPDR.PKT GT SCH (08:02)
[2022-03-15] MEDS: ENOXAPARIN SODIUM 40 MG/0.4 ML DISP.SYRIN SQ SCH (08:03)
[2022-03-15] MEDS: REMEDY ESSENTIAL ZINC PASTE 113 GM TOP SCH ×2 (08:04→20:40)
[2022-03-15] MEDS: GLUCERNA 1.2 1000ML LIQUID GT PRN (08:09)
--- NOTE | 2022-03-15 08:30 | NUR ---
Pt.was seen by Dr Melissa .
--- NOTE | 2022-03-15 10:40 | NUR ---
PT.WAS SEEN BY HARRIET MAE MD
[2022-03-15] MEDS: levoFLOXacin 750MG/D5W 750 MG in PREMIXED 1 EACH IV SCH (16:05)
--- NOTE | 2022-03-15 16:05 | NUR ---
Pt placed on 40Lpm 40% High Flow Nasal Cannula. Pt doing well, with no signs or symptoms of respiratory distress noted. Will continue to monitor, JULIA Maloney aware.
--- NOTE | 2022-03-15 17:00 | NUR ---
Pt placed back on BIPAP with previous settings due to Tachypnea and shortness of breath. SpO2 100%. Decreased FIO2 to 30% RN Haiedr aware.
[2022-03-16] VITALS (10 sets, daily range): BP systolic 90–130; BP diastolic 55–75
[2022-03-16] MEDS: BLOOD SUGAR DIAGNOSTIC 1 EACH STRIP VI SCH ×4 (00:43→18:55)
[2022-03-16] MEDS: IPRATROPIUM BROMIDE 0.5 MG/2.5 ML NEBU NEB SCH ×6 (03:36→23:05)
[2022-03-16] MEDS: ALBUTEROL SULFATE 2.5 MG/3 ML NEBU IH SCH ×6 (03:36→23:06)
[2022-03-16 05:04] LABS: HEMATOCRIT 37.2 % (36.7-47.1); MEAN CORPUSCULAR HEMOGLOBIN 22.1 uug (23.8-33.4); PLATELET COUNT (AUTO) 233 K/uL (152-348)
[2022-03-16 05:49] LABS: CARBON DIOXIDE 37 mmol/L (21-32); CHLORIDE 96 mmol/L (98-107); CREATININE 0.3 mg/dL (0.6-1.3); GLUCOSE 254 mg/dL (74-106); POTASSIUM 4.1 mmol/L (3.5-5.1); UREA NITROGEN, BLOOD 15 mg/dL (7-18)
--- NOTE | 2022-03-16 06:50 | NUR ---
Received Patient on BIPAP with RT at bedside giving nebulizer treatment. Patient seemed comfortable and he denies pain. Pt was afebrile throughout the shift but he experienced intermittent anxiety which was treated with PRN ativan. Pt continues to require the BIPAP therapy. Report endorsed to kaya DUMONT.
[2022-03-16] MEDS: INSULIN REGULAR, HUMAN 300 UNIT/3 ML VIAL SQ PRN ×3 (08:34→18:57)
--- NOTE | 2022-03-16 08:39 | NUR ---
PT WAS TRANSFERED TO ER FROM CCU AT 0750 AM. PT IS RESTING IN BED COMFORTABLY, NO S/S OF ACUTE DISTRESS AT THIS TIME. CONTINUE TO MONITOR THE PT.
[2022-03-16] MEDS: PANTOPRAZOLE ORAL SUSPENSION 40 MG SUSPDR.PKT GT SCH (09:00)
[2022-03-16] MEDS ORDERED: methylPREDNISolone SOD SUCC 40 MG/ML VIAL ONE ×2 (09:22→22:15)
[2022-03-16] MEDS: methylPREDNISolone SOD SUCC 40 MG/ML VIAL IV SCH ×2 (09:23→21:57)
[2022-03-16] MEDS ORDERED: ENOXAPARIN SODIUM 40 MG/0.4 ML DISP.SYRIN SQ ONE (09:23)
[2022-03-16] MEDS: ENOXAPARIN SODIUM 40 MG/0.4 ML DISP.SYRIN SQ SCH (09:24)
[2022-03-16] MEDS: REMEDY ESSENTIAL ZINC PASTE 113 GM TOP SCH ×2 (09:25→21:57)
[2022-03-16] MEDS ORDERED: ALBUTEROL SULFATE 2.5 MG/3 ML NEBU ONE ×3 (10:45→19:08)
[2022-03-16] MEDS ORDERED: IPRATROPIUM BROMIDE 0.5 MG/2.5 ML NEBU ONE ×3 (10:45→19:08)
--- NOTE | 2022-03-16 12:43 | NUR ---
PT IS RESTING IN BED COMFORTABLY . CONTINUE TO MONITOR THE PT.
[2022-03-16] MEDS: levoFLOXacin 750MG/D5W 750 MG in PREMIXED 1 EACH IV SCH (16:06)
[2022-03-16] MEDS ORDERED: LORAZEPAM 0.5 MG TABLET ONE ×2 (17:16→22:04)
[2022-03-16] MEDS: LORAZEPAM 0.5 MG TABLET GT PRN ×2 (17:19→21:58)
--- NOTE | 2022-03-16 18:03 | NUR ---
PT PULLED OUT NGT. NEW NGT #14 WAS INSERTED . PLACEMENT WAS CONFIRMED BY AUSCULTATION WITH STETOSCOP BY 2 RNs AND WITH CHEST X-RAY . PT TOLERATED TO PROCEDURE WITHOUT COMPLICATIONS.
--- NOTE | 2022-03-16 19:15 | NUR ---
Received thorough report from ELMER Hartman RN using SBAR method. Pt is in a holding pattern with nothing pending. Admitting provider Ashleigh Boo to be contacted regarding downgrading pt to VANGIE and promptly transport pt because pt needs one to one sitter due to tendency to pull out lines. Devan said that he had pulled out NG tube earlier. Pt on chem restraint but slowly starting to wake up. VSS.
--- NOTE | 2022-03-16 19:19 | NUR ---
REPORT WAS GIVEN TO CRYPTANALYST [facility] RN.
--- NOTE | 2022-03-16 20:01 | NUR ---
call placed to [facility]. Provider called back within a few minute and downgraded pt to VANGIE.
--- NOTE | 2022-03-16 23:06 | NUR ---
Pts second born son called to ask about fathers condition. We had a very lengthy conversation regarding pt's code status and son's anguish toward his father's situation. Son stated that he and his older brother are the sole next of kin his father has and hence, they are the sole decision makers. After spending 20 min educating the son on the End-of-life decision making process, he had expressed to me that his father told him on many different occations that he is suffering and does not want it to be prolonged. I informed him that, the most important thing is that the pts wish be upheld no matter that may be. If the pt wants full code, then thats what must be carried out. I told son to look up principles of dying a good so he has some idea of what that looks like. We said we will and will discuss it with his brother and cousins and a decision will be made. Most likely 90% sure that pt will be made offically DNR status within next few days. Pt's sons will sign POLST next time they visit pt. Conversation with son was fruitful for son and it seemed to help him deal with his conflicted feelings toward his father.
--- NOTE | 2022-03-16 23:53 | NUR ---
VSS, 127/79, 134bpm, 22rpm, 99% Bipap, pt seems mildly agitated, pulling at vent tube. 0.5 mg ativan given, with little effect. Pt appears to be calming down, in and out of sleep and easily arousable. Lights turned off to decrease stimulation, and soft restraints applied for pt safety. No s/sxof distress present.
[2022-03-17] VITALS (20 sets, daily range): BP systolic 85–133; BP diastolic 47–82
[2022-03-17] MEDS: BLOOD SUGAR DIAGNOSTIC 1 EACH STRIP VI SCH ×5 (00:30→23:58)
[2022-03-17] MEDS: INSULIN REGULAR, HUMAN 300 UNIT/3 ML VIAL SQ PRN ×4 (01:14→23:59)
--- NOTE | 2022-03-17 02:29 | NUR ---
Pt's SBP 77/50, Valdez Ugarte called, Neosinephrin ordered titrate for SBP >90, Pt's HR holding firm at 90bpm SR with st elevation, no ectopy. RRR, normal s1s2. 99% Bipap, 20rpm.
[2022-03-17] MEDS ORDERED: PHENYLEPHRINE IV 50 MG in IV NORMAL SALINE 245 ML IV PRN (02:30)
[2022-03-17] MEDS ORDERED: PHENYLEPHRINE 10 MG/1 ML VIAL ONE (02:37)
--- NOTE | 2022-03-17 02:54 | NUR ---
current BP 82/50. 99% Bipap, 20rpm, 100bpm. [place] ST no ectopy. Pt started on En per admitting MD Vadlez Ugarte. 0.5mg/kg/min.
[2022-03-17] MEDS: IPRATROPIUM BROMIDE 0.5 MG/2.5 ML NEBU NEB SCH ×6 (03:30→23:41)
[2022-03-17] MEDS: ALBUTEROL SULFATE 2.5 MG/3 ML NEBU IH SCH ×6 (03:30→23:41)
--- NOTE | 2022-03-17 05:07 | NUR ---
Pt sleeping soundly in pos of comfort with audible, easily arousable. pt clean and dry. VSS. 116/73, 99%, 82bpm SR without ectopy, afebrile. Oxygenating and perfusing well. No s/sxof distress present.
[2022-03-17 05:40] LABS: HEMATOCRIT 40.3 % (36.7-47.1); MEAN CORPUSCULAR HEMOGLOBIN 21.8 uug (23.8-33.4); MEAN CORPUSCULAR VOLUME 68.9 fL (73.0-96.2); PLATELET COUNT (AUTO) 274 K/uL (152-348)
[2022-03-17 05:46] LABS: CARBON DIOXIDE 36 mmol/L (21-32); CHLORIDE 96 mmol/L (98-107); CREATININE 0.4 mg/dL (0.6-1.3); GLUCOSE 190 mg/dL (74-106); POTASSIUM 4.3 mmol/L (3.5-5.1); UREA NITROGEN, BLOOD 14 mg/dL (7-18)
--- NOTE | 2022-03-17 06:45 | NUR ---
Pt's calderon emptied out of 1600cc clear yellow output. Pt had small BM of dark brown soft serve consistancy feces. Pt cleaned, linen changed, pericare provided. Pt clean and dry and in pos of comfort. Resting comfortably. No s/sxof distress. VSS.,
[2022-03-17] MEDS ORDERED: ALBUTEROL SULFATE 2.5 MG/3 ML NEBU ONE ×3 (07:35→15:19)
[2022-03-17] MEDS ORDERED: IPRATROPIUM BROMIDE 0.5 MG/2.5 ML NEBU ONE ×3 (07:35→15:20)
--- NOTE | 2022-03-17 07:52 | NUR ---
Thorough report given to ELMER Maravilla RN using SBAR method. All questions answered. Pt stable, VSS, pt resting comfortable, in and out of sleep. Bed dropped, rails up, pt on bedside monitor. No s/sx of distress present.
[2022-03-17] MEDS ORDERED: LORAZEPAM 0.5 MG TABLET ONE ×2 (08:13→14:46)
[2022-03-17] MEDS: LORAZEPAM 0.5 MG TABLET GT PRN ×3 (08:47→20:36)
[2022-03-17] MEDS ORDERED: ENOXAPARIN SODIUM 40 MG/0.4 ML DISP.SYRIN SQ ONE (09:04)
[2022-03-17] MEDS ORDERED: methylPREDNISolone SOD SUCC 40 MG/ML VIAL ONE (09:04)
[2022-03-17] MEDS: PANTOPRAZOLE ORAL SUSPENSION 40 MG SUSPDR.PKT GT SCH (09:06)
[2022-03-17] MEDS: methylPREDNISolone SOD SUCC 40 MG/ML VIAL IV SCH ×2 (09:06→20:36)
[2022-03-17] MEDS: ENOXAPARIN SODIUM 40 MG/0.4 ML DISP.SYRIN SQ SCH (09:07)
[2022-03-17] MEDS: REMEDY ESSENTIAL ZINC PASTE 113 GM TOP SCH ×2 (09:07→20:37)
[2022-03-17] MEDS ORDERED: ACETAMINOPHEN 650 MG/20.3 ML LIQUID UDC ONE (11:54)
[2022-03-17] MEDS: ACETAMINOPHEN 650 MG/20.3 ML LIQUID UDC GT PRN (12:04)
--- NOTE | 2022-03-17 14:26 | NUR ---
RECEIVED PT STABLE O BIPAP SATURATING 98-100% ON FIO2 OF 30%. IN LINE MEDS GIVEN ORDERED WITHOUT COMPLICATION. AT AROUND 1319 PATIENT WAS TAKEN OF BIPAP AND PLACED ON 3 LPM NC. TOLERATING WELL WITH SATURATION OF 100%. ASK PATIENT IF HE IS SHORT OF BREATH AND HE SAID NO.
--- NOTE | 2022-03-17 15:15 | NUR ---
0730am: [employer] Machine Operator assumes care. Patient's care was upgraded to CCU/ICU status. Per report from previous RN Soila, this patient is on neosynephrine drip at 0.5mcg/kg/min (dosing weight=60kg), BIPAP=15/5, rate=20, FiO2=30% 0845am: Patient is seen intermittently pulling on his therapeutic lines/tubes, throwing his pillows and blankets on the floor. 1400pm: Patient's family came and visited the patient. 1510pm: Patient is seen trying to pull his lines/tubes again, monitored closely.
[2022-03-17] MEDS: levoFLOXacin 750MG/D5W 750 MG in PREMIXED 1 EACH IV SCH (16:04)
--- NOTE | 2022-03-17 19:27 | NUR ---
Patient is still for transfer to CCU. Nursing SBAR given to registry nurse
--- NOTE | 2022-03-17 19:45 | NUR ---
Gave thorough report to PM CCU RN using sbar method. Also, asisted [facility]URN with transport to the unit, along with RT. Pt was transfered without difficulty or incident. Pt greatful to finally be in a room and seemed alot more lucid than yesterday night, pt could answer questions and follow commands and gave good eye contact.
--- NOTE | 2022-03-17 20:30 | NUR ---
respiratory treatment given by respiratory therapist, after treatment ,deep suction patient via ana/naso pharyngeal with thick blood tinged to michaud to brown secretions ,oral care done . tf in progress patient on Jevity at 50 ml/hr . hob up aspiration precaution observed . neosynephrine drip weaning off see spreadsheet and v/s. Addendum: 03/18/22 at 0014 by FRANCES PATEL RN instead of Jevity patient on Glucerna tube feedings.
--- NOTE | 2022-03-17 21:30 | NUR ---
incontinent of stool ,large soft to liquid brownish stool .changed soiled linens and gown . skin care done . applied z guard to bilateral groin and sacral area ,placed Mepilex to sacral area . offloaded back with pillows bue and ble elevated with pillows . heels off bed .
[2022-03-18] VITALS (31 sets, daily range): BP systolic 48–141; BP diastolic 42–70
--- NOTE | 2022-03-18 00:15 | NUR ---
fingerstick done 205 mild insulin coverage given 4 units.
--- NOTE | 2022-03-18 01:37 | NUR ---
called respiratory therapist patient bipap keeps on beeping c/o leak by the lower mouth side,respiratory therapist came and changed bipap mask from a large to medium size mask ,oral care done and suction patient .
[2022-03-18] MEDS: IPRATROPIUM BROMIDE 0.5 MG/2.5 ML NEBU NEB SCH ×6 (03:24→22:59)
[2022-03-18] MEDS: ALBUTEROL SULFATE 2.5 MG/3 ML NEBU IH SCH ×2 (03:24→07:06)
--- NOTE | 2022-03-18 03:42 | NUR ---
respiratory therapist came and gave patient breathing treatment, oral care done and placed patient on nasal cannula at 3 L/min ,to given patient a rest form bipap ,rr 19 saturation 97 to 987 hr 124, breathing even and unlabored , no sob .
--- NOTE | 2022-03-18 04:00 | NUR ---
incontinent of stool soft brownish in color moderate in amt . changed soiled linens and gown ,z guard applied to sacral and bilateral groin turned and reposition patient . elevated bue and ble with pillows . hob up.
--- NOTE | 2022-03-18 04:30 | NUR ---
junior bookkeeper at b/s for am labs .
[2022-03-18 05:06] LABS: HEMATOCRIT 39.1 % (36.7-47.1); MEAN CORPUSCULAR HEMOGLOBIN 21.9 uug (23.8-33.4); PLATELET COUNT (AUTO) 261 K/uL (152-348)
[2022-03-18 05:16] LABS: CARBON DIOXIDE 36 mmol/L (21-32); CHLORIDE 92 mmol/L (98-107); CREATININE 0.3 mg/dL (0.6-1.3); GLUCOSE 182 mg/dL (74-106); MAGNESIUM 1.6 mg/dL (1.8-2.4); PHOSPHOROUS 3.4 mg/dL (2.5-4.9); POTASSIUM 4.3 mmol/L (3.5-5.1); UREA NITROGEN, BLOOD 14 mg/dL (7-18)
[2022-03-18] MEDS: INSULIN REGULAR, HUMAN 300 UNIT/3 ML VIAL SQ PRN ×3 (05:22→17:16)
[2022-03-18] MEDS: BLOOD SUGAR DIAGNOSTIC 1 EACH STRIP VI SCH ×3 (05:22→17:14)
--- NOTE | 2022-03-18 07:00 | NUR ---
PT.WAS SEEN BY HARRIET MAE MD
[2022-03-18] MEDS: LEVALBUTEROL HCL NEB 0.63 MG/3 ML NEBU NEB SCH ×5 (07:22→22:59)
[2022-03-18 07:26] LABS: ABG BASE EXCESS 10.1 mmol/L; ABG HCO3 36.9 mmol/L; ABG PCO2 59.1 mmHg (35.0-45.0); ABG PH 7.413 (7.350-7.450); ABG PO2 162.4 mmHg (75.0-100.0); ABG SITE LEFT RADIAL; ABG TOTAL HEMOGLOBIN 13.3 G/dL (13.5-18.0); COHb 0.7 % (0.5-1.5); MetHb 0.2 % (0.0-1.5); O2Hb 98.7 % (94.0-97.0); VENT MODE Nasal Cannula
[2022-03-18] MEDS: REMEDY ESSENTIAL ZINC PASTE 113 GM TOP SCH ×2 (08:35→20:13)
[2022-03-18] MEDS: methylPREDNISolone SOD SUCC 40 MG/ML VIAL IV SCH ×2 (08:37→20:11)
[2022-03-18] MEDS: ENOXAPARIN SODIUM 40 MG/0.4 ML DISP.SYRIN SQ SCH (08:38)
[2022-03-18] MEDS: PANTOPRAZOLE ORAL SUSPENSION 40 MG SUSPDR.PKT GT SCH (08:38)
[2022-03-18] MEDS: GLUCERNA 1.2 1000ML LIQUID GT PRN (08:52)
[2022-03-18] MEDS: MAGNESIUM SULFATE/D5W 100 ML IV SCH ×2 (10:31→11:10)
--- NOTE | 2022-03-18 12:09 | NUR ---
Pt.was seen by Dr Melissa .
[2022-03-18] MEDS: LORAZEPAM 0.5 MG TABLET GT PRN (15:27)
[2022-03-18] MEDS: ACETAMINOPHEN 650 MG/20.3 ML LIQUID UDC GT PRN (20:29)
[2022-03-19] VITALS (22 sets, daily range): BP systolic 95–147; BP diastolic 44–86
[2022-03-19] MEDS: BLOOD SUGAR DIAGNOSTIC 1 EACH STRIP VI SCH ×5 (00:17→23:55)
[2022-03-19] MEDS: INSULIN REGULAR, HUMAN 300 UNIT/3 ML VIAL SQ PRN ×4 (00:21→19:01)
[2022-03-19] MEDS: IPRATROPIUM BROMIDE 0.5 MG/2.5 ML NEBU NEB SCH ×6 (03:06→23:16)
[2022-03-19] MEDS: LEVALBUTEROL HCL NEB 0.63 MG/3 ML NEBU NEB SCH ×7 (03:06→23:17)
[2022-03-19] MEDS ORDERED: MIDODRINE HCL 5 MG TABLET ONE (05:02)
[2022-03-19] MEDS: LORAZEPAM 0.5 MG TABLET GT PRN ×2 (05:08→21:55)
[2022-03-19 05:53] LABS: HEMATOCRIT 34.8 % (36.7-47.1); MEAN CORPUSCULAR VOLUME 68.9 fL (73.0-96.2); PLATELET COUNT (AUTO) 253 K/uL (152-348)
[2022-03-19 05:56] LABS: CARBON DIOXIDE 39 mmol/L (21-32); CHLORIDE 94 mmol/L (98-107); CREATININE 0.4 mg/dL (0.6-1.3); GLUCOSE 288 mg/dL (74-106); POTASSIUM 4.3 mmol/L (3.5-5.1); UREA NITROGEN, BLOOD 22 mg/dL (7-18)
--- NOTE | 2022-03-19 07:27 | NUR ---
Large liquid BM. Patient cleaned and changed.
--- NOTE | 2022-03-19 07:50 | NUR ---
Dr. Becker at bedside assessing patient.
[2022-03-19] MEDS: ENOXAPARIN SODIUM 40 MG/0.4 ML DISP.SYRIN SQ SCH (09:07)
[2022-03-19] MEDS: PANTOPRAZOLE ORAL SUSPENSION 40 MG SUSPDR.PKT GT SCH (09:07)
[2022-03-19] MEDS: methylPREDNISolone SOD SUCC 40 MG/ML VIAL IV SCH ×2 (09:07→20:19)
[2022-03-19] MEDS: REMEDY ESSENTIAL ZINC PASTE 113 GM TOP SCH ×2 (09:07→20:20)
[2022-03-19] MEDS: GLUCERNA 1.2 1000ML LIQUID GT PRN (09:30)
--- NOTE | 2022-03-19 19:00 | NUR ---
Received report. Patient is awake, alert, able to make needs known with assistance. Denies pain at this time. No signs of acute distress. On NC@1LPM, O2 sat 100%. NG TF Glucerna 1.2 @50mls/hr, no gastric residual noted. ADARSH PICC SL, patent and flushed. Calero catheter draining well to gravity. Will continue to monitor closely.
--- NOTE | 2022-03-19 21:30 | NUR ---
Called RT to place patient on bipap machine.
[2022-03-19] MEDS: ACETAMINOPHEN 650 MG/20.3 ML LIQUID UDC GT PRN (21:55)
--- NOTE | 2022-03-19 22:00 | NUR ---
PM care done. Linen changed.
--- NOTE | 2022-03-19 23:07 | NUR ---
Placed on bipap machine c/o RT Erik, tolerating well. Will continue to monitor closely.
--- NOTE | 2022-03-19 23:48 | NUR ---
PATIENT WAS ON O2 1L/M NC, WITH NEB RX GIVEN , THEN LEFT NASAL SUCTION, VERY SOLITARIO, ENCOURAGED TO COUGH, SUCTION MOUTH WITH LORENA RHODES, PT THEN PLACED ON BI/PA WITH MASK APPROX. 23:15, DOING WELL, GETTING SLEEPY, WITH SETTINGS, 15/5, RR20, 30% , FIO2 , SAT 97%, WILL MONITOR CLOSELY . Debra SANDHUP Addendum: 03/19/22 at 2350 by VAL NAVARRO RT Amended: Links added.
[2022-03-20] VITALS (24 sets, daily range): BP systolic 91–137; BP diastolic 45–74
[2022-03-20] MEDS: LEVALBUTEROL HCL NEB 0.63 MG/3 ML NEBU NEB SCH ×6 (03:47→23:45)
[2022-03-20] MEDS: IPRATROPIUM BROMIDE 0.5 MG/2.5 ML NEBU NEB SCH ×6 (03:47→23:45)
--- NOTE | 2022-03-20 05:00 | NUR ---
Removed bipap machine and placed on NC @1LPM c/o RT Erik, tolerating well.
[2022-03-20] MEDS: BLOOD SUGAR DIAGNOSTIC 1 EACH STRIP VI SCH ×4 (05:13→23:51)
[2022-03-20] MEDS: INSULIN REGULAR, HUMAN 300 UNIT/3 ML VIAL SQ PRN ×4 (05:17→23:52)
[2022-03-20 05:19] LABS: HEMATOCRIT 35.9 % (36.7-47.1); MEAN CORPUSCULAR VOLUME 69.6 fL (73.0-96.2); PLATELET COUNT (AUTO) 208 K/uL (152-348)
[2022-03-20 05:37] LABS: CARBON DIOXIDE 37 mmol/L (21-32); CHLORIDE 91 mmol/L (98-107); CREATININE 0.3 mg/dL (0.6-1.3); MAGNESIUM 1.7 mg/dL (1.8-2.4); POTASSIUM 4.6 mmol/L (3.5-5.1); UREA NITROGEN, BLOOD 19 mg/dL (7-18)
[2022-03-20 05:44] LABS: GLUCOSE 303 mg/dL (74-106)
--- NOTE | 2022-03-20 06:00 | NUR ---
TF Glucerna 1.2 off [id number].
[2022-03-20 06:12] LABS: ABG BASE EXCESS 10.7 mmol/L; ABG HCO3 36.8 mmol/L; ABG PCO2 55.3 mmHg (35.0-45.0); ABG PH 7.441 (7.350-7.450); ABG PO2 103.6 mmHg (75.0-100.0); ABG SITE LEFT RADIAL; ABG TOTAL HEMOGLOBIN 13.1 G/dL (13.5-18.0); COHb 0.9 % (0.5-1.5); MetHb 0.2 % (0.0-1.5); O2Hb 97.4 % (94.0-97.0); VENT MODE Nasal Cannula
[2022-03-20] MEDS: methylPREDNISolone SOD SUCC 40 MG/ML VIAL IV SCH ×2 (08:27→20:19)
[2022-03-20] MEDS: PANTOPRAZOLE ORAL SUSPENSION 40 MG SUSPDR.PKT GT SCH ×2 (08:36→09:00)
[2022-03-20] MEDS: GLUCERNA 1.2 1000ML LIQUID GT PRN ×2 (08:38→12:22)
--- NOTE | 2022-03-20 08:48 | NUR ---
NG-tube found to have resistance when attempting to push air for auscultation.
--- NOTE | 2022-03-20 08:59 | NUR ---
Patient desaturating, to the 70s, called RT to place patient on BiPap.
[2022-03-20] MEDS: ENOXAPARIN SODIUM 40 MG/0.4 ML DISP.SYRIN SQ SCH (09:36)
[2022-03-20] MEDS: MAGNESIUM SULFATE/D5W 100 ML IV SCH ×2 (09:37→11:46)
--- NOTE | 2022-03-20 10:33 | NUR ---
Reinserted new NG-Tube. Auscultated for positive placement. Chest x-ray ordered.
[2022-03-20] MEDS: REMEDY ESSENTIAL ZINC PASTE 113 GM TOP SCH ×2 (11:41→20:16)
--- NOTE | 2022-03-20 13:50 | NUR ---
While primary Terri on break and Nursing billposting supervisor in the unit pt. forcefully removed his calderon catheter out with balloon still inflated. A new one reinserted by Nursing billposting supervisor. attending notified and pt. placed on deena JAMESON. afia rn. informed. Addendum: 03/20/22 at 1606 by ZAINA CORTES RN No bleeding noted.
[2022-03-20 16:33] LABS: *BILIRUBIN,URIN NEGATIVE (NEGATIVE); *BLOOD, URINE 3+ (NEGATIVE); *CLARITY,URINE SLIGHTLY CLOUDY (CLEAR); *COLOR,URINE YELLOW (YELLOW); *KETONES,URINE NEGATIVE (NEGATIVE); *UROBILINOGEN,URINE 0.2 E.U./dl (NORMAL); LEUKOCYTE ESTERASE ,URINE 1+ (NEGATIVE); NITRITE, URINE NEGATIVE (NEGATIVE); UGLUCOSE 2+ (NEGATIVE)
--- NOTE | 2022-03-20 19:00 | NUR ---
Received report. Patient is awake, alert, able to make needs known with assistance. Denies pain at this time. No signs of acute distress. On NC@2LPM, O2 sat 100%. NG left nare TF Glucerna 1.2 @50mls/hr, no gastric residual noted. ADARSH PICC SL, patent and flushed. Calero catheter draining well to gravity. Will continue to monitor closely. Addendum: 03/20/22 at 2311 by Yvonne Hurley RN On mitten restraints, CMS checked and intact. Will continue to monitor closely,
[2022-03-20 19:08] LABS: BACTERIA,URINE FEW /HPF (NONE SEEN); RBC,URINE 50-80 /HPF (0-3); SQUAMOUS EPITHELIAL CELL,UR FEW /HPF (NONE SEEN)
[2022-03-20] MEDS: ACETAMINOPHEN 650 MG/20.3 ML LIQUID UDC GT PRN (20:24)
[2022-03-20] MEDS: LORAZEPAM 0.5 MG TABLET GT PRN (20:24)
--- NOTE | 2022-03-20 22:30 | NUR ---
PM care done. Linen changed.
--- NOTE | 2022-03-20 22:45 | NUR ---
Patient placed on bipap machine c/o RT Deandra and tolerating well. Will continue to monitor closely.
[2022-03-21] VITALS (23 sets, daily range): BP systolic 91–162; BP diastolic 64–84
[2022-03-21] MEDS: LORAZEPAM 0.5 MG TABLET GT PRN ×2 (03:00→17:05)
[2022-03-21] MEDS: ACETAMINOPHEN 650 MG/20.3 ML LIQUID UDC GT PRN ×2 (03:00→21:08)
[2022-03-21] MEDS: IPRATROPIUM BROMIDE 0.5 MG/2.5 ML NEBU NEB SCH ×7 (03:01→22:56)
[2022-03-21] MEDS: LEVALBUTEROL HCL NEB 0.63 MG/3 ML NEBU NEB SCH ×7 (03:01→22:56)
[2022-03-21 05:18] LABS: MEAN CORPUSCULAR HEMOGLOBIN 21.8 uug (23.8-33.4); PLATELET COUNT (AUTO) 225 K/uL (152-348)
[2022-03-21 05:28] LABS: CHLORIDE 92 mmol/L (98-107); CREATININE 0.3 mg/dL (0.6-1.3); GLUCOSE 250 mg/dL (74-106); MAGNESIUM 1.8 mg/dL (1.8-2.4); PHOSPHOROUS 2.5 mg/dL (2.5-4.9); POTASSIUM 4.3 mmol/L (3.5-5.1); UREA NITROGEN, BLOOD 19 mg/dL (7-18)
--- NOTE | 2022-03-21 05:30 | NUR ---
Bipap removed and placed on NC @1LPM c/o RT Deandra, tolerating well. Will continue to monitor closely.
[2022-03-21 05:36] LABS: CARBON DIOXIDE 40 mmol/L (21-32)
--- NOTE | 2022-03-21 06:00 | NUR ---
TF Glucerna 1.2 off [id number].
[2022-03-21] MEDS: BLOOD SUGAR DIAGNOSTIC 1 EACH STRIP VI SCH ×3 (06:11→18:47)
[2022-03-21] MEDS: INSULIN REGULAR, HUMAN 300 UNIT/3 ML VIAL SQ PRN ×3 (06:13→18:48)
--- NOTE | 2022-03-21 06:15 | NUR ---
Spoke with Dat regarding critical lab result CO2 40. Called [facility] and spoke with Dr Landrum re: CO2 result, with no new orders.
[2022-03-21 06:17] LABS: ABG BASE EXCESS 14.5 mmol/L; ABG HCO3 41.9 mmol/L; ABG PCO2 65.3 mmHg (35.0-45.0); ABG PH 7.425 (7.350-7.450); ABG PO2 104.4 mmHg (75.0-100.0); ABG SITE RIGHT BRACHIAL; ABG TOTAL HEMOGLOBIN 12.9 G/dL (13.5-18.0); COHb 0.5 % (0.5-1.5); MetHb 0.2 % (0.0-1.5); O2Hb 97.7 % (94.0-97.0); VENT MODE Nasal Cannula
--- NOTE | 2022-03-21 07:50 | NUR ---
Patient removed NG tube.
[2022-03-21] MEDS: methylPREDNISolone SOD SUCC 40 MG/ML VIAL IV SCH ×2 (08:42→21:07)
[2022-03-21] MEDS: REMEDY ESSENTIAL ZINC PASTE 113 GM TOP SCH ×2 (08:43→20:58)
[2022-03-21] MEDS: ACETAzolamide SODIUM 500 MG VIAL IV SCH (08:43)
[2022-03-21] MEDS: ENOXAPARIN SODIUM 40 MG/0.4 ML DISP.SYRIN SQ SCH (08:45)
[2022-03-21] MEDS: PANTOPRAZOLE ORAL SUSPENSION 40 MG SUSPDR.PKT GT SCH (09:00)
[2022-03-21] MEDS: CEFTRIAXONE 1 G in IV DEXTROSE 5% 50 ML IV SCH (09:21)
[2022-03-21] MEDS: GLUCERNA 1.2 1000ML LIQUID GT PRN (13:38)
--- NOTE | 2022-03-21 15:18 | NUR ---
Patient with blood pressure readings in the 160s systolic. Notified Peggy Bass NP. Orders received and carried out.
[2022-03-21] MEDS ORDERED: CLONIDINE HCL 0.1 MG TABLET NG ONE (16:00)
--- NOTE | 2022-03-21 19:00 | NUR ---
Received report. Patient is awake, alert, denies pain at this time. NAD. On NC @ 1LPM, O2 sat 98%. ADARSH PICC line patent and flushed. No erythema, bleeding or infiltration noted. On mittens restraints, CMS checked and intact. Calero catheter draining well to gravity. Will continue to monitor closely.
--- NOTE | 2022-03-21 21:00 | NUR ---
PM care done. Linen changed.
--- NOTE | 2022-03-21 22:30 | NUR ---
Placed on bipap machine c/o RT Kvng, tolerating well. Will continue to monitor closely.
[2022-03-22] VITALS (24 sets, daily range): BP systolic 74–191; BP diastolic 46–88
[2022-03-22] MEDS: BLOOD SUGAR DIAGNOSTIC 1 EACH STRIP VI SCH ×5 (00:14→23:39)
[2022-03-22] MEDS: INSULIN REGULAR, HUMAN 300 UNIT/3 ML VIAL SQ PRN ×5 (00:14→23:40)
--- NOTE | 2022-03-22 00:15 | NUR ---
BS 100, no coverage.
[2022-03-22] MEDS: LEVALBUTEROL HCL NEB 0.63 MG/3 ML NEBU NEB SCH ×6 (02:58→22:34)
[2022-03-22] MEDS: IPRATROPIUM BROMIDE 0.5 MG/2.5 ML NEBU NEB SCH ×6 (02:58→22:34)
[2022-03-22 05:23] LABS: HEMATOCRIT 36.8 % (36.7-47.1); MEAN CORPUSCULAR HEMOGLOBIN 22.1 uug (23.8-33.4); MEAN CORPUSCULAR VOLUME 70.1 fL (73.0-96.2); PLATELET COUNT (AUTO) 228 K/uL (152-348)
--- NOTE | 2022-03-22 05:30 | NUR ---
Bipap removed and placed on NC@1LPM c/o RT Kvng, tolerating well, O2 sat 98%. Will continue to monitor closely.
[2022-03-22 05:56] LABS: CARBON DIOXIDE 32 mmol/L (21-32); CHLORIDE 93 mmol/L (98-107); CREATININE 0.4 mg/dL (0.6-1.3); GLUCOSE 241 mg/dL (74-106); MAGNESIUM 1.7 mg/dL (1.8-2.4); PHOSPHOROUS 4.1 mg/dL (2.5-4.9); POTASSIUM 4.6 mmol/L (3.5-5.1); UREA NITROGEN, BLOOD 20 mg/dL (7-18)
--- NOTE | 2022-03-22 06:00 | NUR ---
TF Jevity 1.2 off [id number].
--- NOTE | 2022-03-22 06:00 | NUR ---
BMx1, soft brown in consistency. Cleaned patient and linen changed.
[2022-03-22 06:20] LABS: ABG HCO3 30.8 mmol/L; ABG PCO2 55.8 mmHg (35.0-45.0); ABG PO2 109.4 mmHg (75.0-100.0); ABG SITE RIGHT RADIAL; ABG TOTAL HEMOGLOBIN 13.4 G/dL (13.5-18.0); MetHb 0.2 % (0.0-1.5); O2Hb 97.4 % (94.0-97.0); VENT MODE Nasal Cannula
[2022-03-22] MEDS: PANTOPRAZOLE ORAL SUSPENSION 40 MG SUSPDR.PKT GT SCH (10:02)
[2022-03-22] MEDS: methylPREDNISolone SOD SUCC 40 MG/ML VIAL IV SCH ×2 (10:02→21:11)
[2022-03-22] MEDS: MAGNESIUM SULFATE/D5W 100 ML IV SCH ×2 (10:02→12:24)
[2022-03-22] MEDS: CEFTRIAXONE 1 G in IV DEXTROSE 5% 50 ML IV SCH (10:03)
[2022-03-22] MEDS: ACETAzolamide SODIUM 500 MG VIAL IV SCH (10:03)
[2022-03-22] MEDS: ENOXAPARIN SODIUM 40 MG/0.4 ML DISP.SYRIN SQ SCH (10:07)
[2022-03-22] MEDS: REMEDY ESSENTIAL ZINC PASTE 113 GM TOP SCH ×2 (10:08→21:09)
[2022-03-22] MEDS: ACETAMINOPHEN 650 MG/20.3 ML LIQUID UDC GT PRN ×2 (13:20→22:18)
[2022-03-22] MEDS: CEFAZOLIN 1 G in IV DEXTROSE 5% 50 ML IV SCH ×2 (17:49→23:31)
--- NOTE | 2022-03-22 19:00 | NUR ---
Patient is awake, alert, denies pain at this time. No signs of acute distress. NG TF Glucerna 1.2 @60mls/hr, no gastric residual noted. ADARSH PICC line patent and flushed. Calero catheter draining well to gravity. Will continue to monitor closely.
--- NOTE | 2022-03-22 19:15 | NUR ---
Placed on bipap machine c/o RT Efrain, tolerating well. Will continue to monitor closely.
--- NOTE | 2022-03-22 20:00 | NUR ---
Oral care and suctioning done every 2 hours. Turn and reposition done every 2 hours.
[2022-03-22] MEDS: LORAZEPAM 0.5 MG TABLET GT PRN (22:18)
[2022-03-23] VITALS (24 sets, daily range): BP systolic 89–129; BP diastolic 34–91
[2022-03-23] MEDS: LORAZEPAM 0.5 MG TABLET GT PRN (02:33)
[2022-03-23] MEDS: IPRATROPIUM BROMIDE 0.5 MG/2.5 ML NEBU NEB SCH ×6 (03:03→23:46)
[2022-03-23] MEDS: LEVALBUTEROL HCL NEB 0.63 MG/3 ML NEBU NEB SCH ×7 (03:03→23:46)
[2022-03-23 04:56] LABS: HEMATOCRIT 37.2 % (36.7-47.1); MEAN CORPUSCULAR VOLUME 69.8 fL (73.0-96.2); PLATELET COUNT (AUTO) 183 K/uL (152-348)
[2022-03-23 05:02] LABS: THYROID STIMULATING HORMONE 0.379 mIU/mL (0.358-3.740)
[2022-03-23 05:17] LABS: CARBON DIOXIDE 31 mmol/L (21-32); CHLORIDE 92 mmol/L (98-107); CREATININE 0.3 mg/dL (0.6-1.3); GLUCOSE 212 mg/dL (74-106); PHOSPHOROUS 3.3 mg/dL (2.5-4.9); POTASSIUM 4.2 mmol/L (3.5-5.1); UREA NITROGEN, BLOOD 22 mg/dL (7-18)
[2022-03-23 05:31] LABS: URIC ACID 3.7 mg/dL (3.5-7.2)
[2022-03-23] MEDS: BLOOD SUGAR DIAGNOSTIC 1 EACH STRIP VI SCH ×3 (05:46→18:00)
[2022-03-23] MEDS: INSULIN REGULAR, HUMAN 300 UNIT/3 ML VIAL SQ PRN ×3 (05:47→19:10)
[2022-03-23] MEDS: ACETAMINOPHEN 650 MG/20.3 ML LIQUID UDC GT PRN (05:54)
--- NOTE | 2022-03-23 06:00 | NUR ---
Bipap removed c/o RT Harlan. Placed on RA, tolerating well O2 sat 98%.
--- NOTE | 2022-03-23 06:30 | NUR ---
Patient stated, "I want the mask." Labored breathing noted, RR 23, HR 121,O2 sat 85%. Patient placed back on bipap machine. Will continue to monitor closely.
--- NOTE | 2022-03-23 07:52 | NUR ---
held lovenox. patient easily bleeds with oral care and deep suctioning.
[2022-03-23] MEDS: CEFAZOLIN 1 G in IV DEXTROSE 5% 50 ML IV SCH (07:54)
[2022-03-23] MEDS: ACETAzolamide SODIUM 500 MG VIAL IV SCH (07:54)
[2022-03-23] MEDS: PANTOPRAZOLE ORAL SUSPENSION 40 MG SUSPDR.PKT GT SCH (07:54)
[2022-03-23] MEDS: methylPREDNISolone SOD SUCC 40 MG/ML VIAL IV SCH ×2 (07:55→21:24)
[2022-03-23] MEDS: ENOXAPARIN SODIUM 40 MG/0.4 ML DISP.SYRIN SQ SCH (07:55)
[2022-03-23] MEDS: REMEDY ESSENTIAL ZINC PASTE 113 GM TOP SCH ×2 (07:58→21:24)
[2022-03-23] MEDS: SULFAMETH/TRIMETH 800/160 MG TABLET PO SCH ×2 (10:23→21:24)
[2022-03-23 13:43] LABS: ABG BASE EXCESS 4.2 mmol/L; ABG HCO3 30.2 mmol/L; ABG PH 7.391 (7.350-7.450); ABG PO2 115.5 mmHg (75.0-100.0); ABG SITE RIGHT RADIAL; ABG TOTAL HEMOGLOBIN 13.2 G/dL (13.5-18.0); COHb 0.8 % (0.5-1.5); MetHb 0.3 % (0.0-1.5); O2Hb 97.8 % (94.0-97.0); VENT MODE BIPAP
--- NOTE | 2022-03-23 23:15 | NUR ---
PT RECEOVED IN BED AWAKE AND IS CALLING FOR NURSE. BOPAP IN PLACE,I/E 15/5, RATE 20, FIO2 30 PERCENT. RESSURACE PROVIDED. PNGT ITACT AND PATENT. BETTENCOURT CATH TO GRAVITY.RIGHT UPPER ARM PICC LINE INTACT AND PATENT NS INFISING AT TKO VIA PROXIMAL LUMEN.PT REPOSITIONED WITH HOD 45 DEGREE CALL LIGHT IN REACH AND BED IS IN LIWEST POSITION.
[2022-03-24] VITALS (24 sets, daily range): BP systolic 93–179; BP diastolic 54–113
[2022-03-24] MEDS: ACETAMINOPHEN 650 MG/20.3 ML LIQUID UDC GT PRN (00:02)
[2022-03-24] MEDS: LORAZEPAM 0.5 MG TABLET GT PRN ×5 (00:02→22:52)
[2022-03-24] MEDS: BLOOD SUGAR DIAGNOSTIC 1 EACH STRIP VI SCH ×4 (00:17→17:46)
[2022-03-24] MEDS: INSULIN REGULAR, HUMAN 300 UNIT/3 ML VIAL SQ PRN ×4 (00:21→17:47)
--- NOTE | 2022-03-24 00:24 | NUR ---
PT IS AGITATED . CALLS NURSE . AT THE BEDSIDE TO AD JUST BIPAP, AaTIVAN GIVIN ORDERED.WILL CONTINUE TO MONITOR PATIENT.
[2022-03-24] MEDS: IPRATROPIUM BROMIDE 0.5 MG/2.5 ML NEBU NEB SCH ×6 (03:14→23:15)
[2022-03-24] MEDS: LEVALBUTEROL HCL NEB 0.63 MG/3 ML NEBU NEB SCH ×6 (03:14→23:15)
[2022-03-24 05:45] LABS: HEMATOCRIT 37.7 % (36.7-47.1); MEAN CORPUSCULAR HEMOGLOBIN 22.1 uug (23.8-33.4); MEAN CORPUSCULAR VOLUME 69.4 fL (73.0-96.2); PLATELET COUNT (AUTO) 225 K/uL (152-348)
[2022-03-24 06:18] LABS: CARBON DIOXIDE 30 mmol/L (21-32); CHLORIDE 94 mmol/L (98-107); CREATININE 0.3 mg/dL (0.6-1.3); GLUCOSE 209 mg/dL (74-106); MAGNESIUM 1.9 mg/dL (1.8-2.4); PHOSPHOROUS 3.4 mg/dL (2.5-4.9); POTASSIUM 4.3 mmol/L (3.5-5.1); UREA NITROGEN, BLOOD 21 mg/dL (7-18)
[2022-03-24 07:32] LABS: ABG BASE EXCESS 3.7 mmol/L; ABG HCO3 28.6 mmol/L; ABG PCO2 44.3 mmHg (35.0-45.0); ABG PH 7.428 (7.350-7.450); ABG PO2 70.9 mmHg (75.0-100.0); ABG SITE LEFT RADIAL; ABG TOTAL HEMOGLOBIN 13.1 G/dL (13.5-18.0); COHb 0.8 % (0.5-1.5); MetHb 0.2 % (0.0-1.5); O2Hb 94.4 % (94.0-97.0); VENT MODE BIPAP
[2022-03-24] MEDS: methylPREDNISolone SOD SUCC 40 MG/ML VIAL IV SCH ×2 (08:02→20:47)
[2022-03-24] MEDS: PANTOPRAZOLE ORAL SUSPENSION 40 MG SUSPDR.PKT GT SCH (08:02)
[2022-03-24] MEDS: ENOXAPARIN SODIUM 40 MG/0.4 ML DISP.SYRIN SQ SCH (08:03)
[2022-03-24] MEDS: REMEDY ESSENTIAL ZINC PASTE 113 GM TOP SCH ×2 (08:06→20:49)
[2022-03-24] MEDS: SULFAMETH/TRIMETH 800/160 MG TABLET PO SCH ×2 (08:34→20:47)
--- NOTE | 2022-03-24 17:00 | NUR ---
patient deep suction oral and nasal. patient taken off bipap on room air. patient is tolerating.
--- NOTE | 2022-03-24 19:45 | NUR ---
RT at bedside, CPT being given to pt, tolerated well. Awake and alert, repositioned to side, tolerated well. VSS. Closely monitored.
--- NOTE | 2022-03-24 20:29 | NUR ---
Dr Hollis at bedside and updated with pt condition, SBP 90's, low urine output, NS bolus ongoing. Will continue to monitor. Pt awake and following commands. Addendum: 03/24/22 at 2030 by ALVARO BROOKS RN Wrong pt
--- NOTE | 2022-03-24 22:53 | NUR ---
Pt agitated, repositioned and back care done, denies any pain. Ativan given per NGT. Safety precaution maintained.
[2022-03-25] VITALS (24 sets, daily range): BP systolic 122–158; BP diastolic 55–95
[2022-03-25] MEDS: INSULIN REGULAR, HUMAN 300 UNIT/3 ML VIAL SQ PRN ×5 (01:34→23:57)
[2022-03-25] MEDS: LEVALBUTEROL HCL NEB 0.63 MG/3 ML NEBU NEB SCH ×6 (02:54→23:11)
[2022-03-25] MEDS: IPRATROPIUM BROMIDE 0.5 MG/2.5 ML NEBU NEB SCH ×6 (02:54→23:11)
[2022-03-25] MEDS: LORAZEPAM 0.5 MG TABLET GT PRN (03:50)
[2022-03-25] MEDS: BLOOD SUGAR DIAGNOSTIC 1 EACH STRIP VI SCH ×5 (05:24→23:56)
[2022-03-25 05:29] LABS: HEMATOCRIT 39.6 % (36.7-47.1); MEAN CORPUSCULAR HEMOGLOBIN 22.1 uug (23.8-33.4); MEAN CORPUSCULAR VOLUME 69.1 fL (73.0-96.2); PLATELET COUNT (AUTO) 230 K/uL (152-348)
[2022-03-25 05:51] LABS: CARBON DIOXIDE 32 mmol/L (21-32); CHLORIDE 93 mmol/L (98-107); CREATININE 0.5 mg/dL (0.6-1.3); GLUCOSE 123 mg/dL (74-106); MAGNESIUM 1.7 mg/dL (1.8-2.4); PHOSPHOROUS 2.7 mg/dL (2.5-4.9); POTASSIUM 4.9 mmol/L (3.5-5.1); UREA NITROGEN, BLOOD 20 mg/dL (7-18)
[2022-03-25 08:35] LABS: ABG BASE EXCESS 3.2 mmol/L; ABG PCO2 49.2 mmHg (35.0-45.0); ABG PH 7.388 (7.350-7.450); ABG PO2 109.2 mmHg (75.0-100.0); ABG SITE LEFT BRACHIAL; ABG TOTAL HEMOGLOBIN 12.9 G/dL (13.5-18.0); COHb 0.7 % (0.5-1.5); MetHb 0.3 % (0.0-1.5); O2Hb 97.4 % (94.0-97.0); VENT MODE NC
[2022-03-25] MEDS ORDERED: MAGNESIUM OXIDE 400 MG TABLET GT ONE (09:45)
[2022-03-25] MEDS: SULFAMETH/TRIMETH 800/160 MG TABLET PO SCH ×2 (09:50→20:11)
[2022-03-25] MEDS: PANTOPRAZOLE ORAL SUSPENSION 40 MG SUSPDR.PKT GT SCH (09:50)
[2022-03-25] MEDS: methylPREDNISolone SOD SUCC 40 MG/ML VIAL IV SCH ×2 (09:50→20:10)
[2022-03-25] MEDS: ENOXAPARIN SODIUM 40 MG/0.4 ML DISP.SYRIN SQ SCH (09:55)
[2022-03-25] MEDS: REMEDY ESSENTIAL ZINC PASTE 113 GM TOP SCH ×2 (10:48→20:10)
--- NOTE | 2022-03-25 19:00 | NUR ---
Received report. Patient is awake, alert. Denies pain at this time. No signs of acute distress noted. On NC @0.5LPM, O2 sat 98%. ADARSH PICC patent and flushed. Calero catheter draining well to catheter. Will continue to monitor closely.
--- NOTE | 2022-03-25 19:15 | NUR ---
Suctioning and oral care done every 2 hours. Turn and repositioned every 2 hours.
--- NOTE | 2022-03-25 19:30 | NUR ---
Placed on bipap machine c/o RT Harlan, tolerating well.
[2022-03-26] VITALS (24 sets, daily range): BP systolic 103–151; BP diastolic 58–85
[2022-03-26] MEDS: ACETAMINOPHEN 650 MG/20.3 ML LIQUID UDC GT PRN ×2 (00:48→20:53)
[2022-03-26] MEDS: LORAZEPAM 0.5 MG TABLET GT PRN ×2 (00:48→20:53)
[2022-03-26] MEDS: LEVALBUTEROL HCL NEB 0.63 MG/3 ML NEBU NEB SCH ×6 (04:10→23:02)
[2022-03-26] MEDS: IPRATROPIUM BROMIDE 0.5 MG/2.5 ML NEBU NEB SCH ×6 (04:10→23:02)
--- NOTE | 2022-03-26 04:30 | NUR ---
AM care done. Linen changed.
--- NOTE | 2022-03-26 06:00 | NUR ---
TF Glucerna 1.2 off [id number].
[2022-03-26] MEDS: BLOOD SUGAR DIAGNOSTIC 1 EACH STRIP VI SCH ×3 (06:05→18:56)
[2022-03-26] MEDS: INSULIN REGULAR, HUMAN 300 UNIT/3 ML VIAL SQ PRN ×2 (06:06→13:10)
[2022-03-26] MEDS: PANTOPRAZOLE ORAL SUSPENSION 40 MG SUSPDR.PKT GT SCH (09:27)
[2022-03-26] MEDS: methylPREDNISolone SOD SUCC 40 MG/ML VIAL IV SCH ×2 (09:27→20:53)
[2022-03-26] MEDS: SULFAMETH/TRIMETH 800/160 MG TABLET PO SCH ×2 (09:28→20:53)
[2022-03-26] MEDS: ENOXAPARIN SODIUM 40 MG/0.4 ML DISP.SYRIN SQ SCH (09:29)
[2022-03-26] MEDS: REMEDY ESSENTIAL ZINC PASTE 113 GM TOP SCH ×2 (09:31→20:53)
[2022-03-26] MEDS: ACETAMINOPHEN 650 MG SUPP.RECT RC PRN (11:47)
--- NOTE | 2022-03-26 23:15 | NUR ---
Bipap removed and placed on NC @2LPM c/o RT Evette, tolerating well O2 sat 95%. Will continue to monitor closely.
[2022-03-27] VITALS (23 sets, daily range): BP systolic 88–156; BP diastolic 44–84
[2022-03-27] MEDS: BLOOD SUGAR DIAGNOSTIC 1 EACH STRIP VI SCH ×4 (00:10→18:10)
[2022-03-27] MEDS: INSULIN REGULAR, HUMAN 300 UNIT/3 ML VIAL SQ PRN ×4 (00:11→18:12)
--- NOTE | 2022-03-27 01:30 | NUR ---
AM care done. Linen changed.
[2022-03-27] MEDS: IPRATROPIUM BROMIDE 0.5 MG/2.5 ML NEBU NEB SCH ×6 (03:06→23:17)
[2022-03-27] MEDS: LEVALBUTEROL HCL NEB 0.63 MG/3 ML NEBU NEB SCH ×6 (03:06→23:17)
[2022-03-27 05:08] LABS: CARBON DIOXIDE 36 mmol/L (21-32); CHLORIDE 92 mmol/L (98-107); CREATININE 0.3 mg/dL (0.6-1.3); GLUCOSE 257 mg/dL (74-106); MAGNESIUM 1.6 mg/dL (1.8-2.4); PHOSPHOROUS 3.4 mg/dL (2.5-4.9); POTASSIUM 4.9 mmol/L (3.5-5.1); UREA NITROGEN, BLOOD 19 mg/dL (7-18)
--- NOTE | 2022-03-27 06:00 | NUR ---
TF Glucerna 1.2 off [id number].
[2022-03-27 06:13] LABS: HEMATOCRIT 35.3 % (36.7-47.1); MEAN CORPUSCULAR HEMOGLOBIN 22.3 uug (23.8-33.4); MEAN CORPUSCULAR VOLUME 68.8 fL (73.0-96.2); PLATELET COUNT (AUTO) 286 K/uL (152-348)
--- NOTE | 2022-03-27 06:50 | NUR ---
Dr. Dewitt at bedside, report given.
[2022-03-27] MEDS: SULFAMETH/TRIMETH 800/160 MG TABLET PO SCH ×2 (07:57→20:46)
[2022-03-27] MEDS: methylPREDNISolone SOD SUCC 40 MG/ML VIAL IV SCH ×2 (07:57→20:46)
[2022-03-27] MEDS: MAGNESIUM SULFATE/D5W 100 ML IV SCH ×2 (07:57→10:17)
[2022-03-27] MEDS: PANTOPRAZOLE ORAL SUSPENSION 40 MG SUSPDR.PKT GT SCH (07:57)
[2022-03-27] MEDS: ENOXAPARIN SODIUM 40 MG/0.4 ML DISP.SYRIN SQ SCH (07:58)
[2022-03-27] MEDS: REMEDY ESSENTIAL ZINC PASTE 113 GM TOP SCH ×2 (07:58→20:45)
[2022-03-27] MEDS: LORAZEPAM 0.5 MG TABLET GT PRN (08:22)
--- NOTE | 2022-03-27 21:12 | NUR ---
PATIENT 0N BI/PAP AT THIS TIME, WITH FULL FACE MASK ABOVE FOREHEAD, WITH PT LEAK ON , PT TOLERATING BI/PAP; WITH CURRENT SETTINGS, 15/5, R20 , FIO2 @ 30%, 20-27RR APPROX, NO RESP. DISTRESS NOTED; Q4 NEB INLINE WITH 0.63 XOPENEX/ 0.5 ATROVENT INLINE, CHANGE PULSE OXY PROBE, ON RIGHT EAR ; TOLL WELL, ADJUST MASK AT TIMES, SX PRN , LEFT NARE , VERY PROD.D MELANIE EXCELLENCE COACH Addendum: 03/27/22 at 2118 by VAL NAVARRO RT Amended: Links added.
--- NOTE | 2022-03-27 23:00 | NUR ---
Bipap machine removed and placed on NC @2LPM c/o RT Erik, tolerating well O2 sat 100%. Will continue to monitor closely.
[2022-03-28] VITALS (23 sets, daily range): BP systolic 93–211; BP diastolic 45–100
[2022-03-28] MEDS: BLOOD SUGAR DIAGNOSTIC 1 EACH STRIP VI SCH ×4 (01:18→18:00)
[2022-03-28] MEDS: INSULIN REGULAR, HUMAN 300 UNIT/3 ML VIAL SQ PRN ×3 (01:19→13:07)
[2022-03-28] MEDS: ACETAMINOPHEN 650 MG/20.3 ML LIQUID UDC GT PRN ×2 (01:32→21:05)
[2022-03-28] MEDS: LORAZEPAM 0.5 MG TABLET GT PRN ×3 (01:32→21:05)
[2022-03-28] MEDS: LEVALBUTEROL HCL NEB 0.63 MG/3 ML NEBU NEB SCH ×5 (03:32→20:38)
[2022-03-28] MEDS: IPRATROPIUM BROMIDE 0.5 MG/2.5 ML NEBU NEB SCH ×5 (03:32→20:37)
--- NOTE | 2022-03-28 04:00 | NUR ---
AM care done. BM x1 brown in color, soft in consistency. Linen changed.
[2022-03-28 05:04] LABS: HEMATOCRIT 35.6 % (36.7-47.1); MEAN CORPUSCULAR HEMOGLOBIN 22.3 uug (23.8-33.4); MEAN CORPUSCULAR VOLUME 70.2 fL (73.0-96.2); PLATELET COUNT (AUTO) 314 K/uL (152-348)
[2022-03-28 05:08] LABS: CARBON DIOXIDE 38 mmol/L (21-32); CHLORIDE 90 mmol/L (98-107); CREATININE 0.3 mg/dL (0.6-1.3); GLUCOSE 282 mg/dL (74-106); MAGNESIUM 1.7 mg/dL (1.8-2.4); PHOSPHOROUS 3.3 mg/dL (2.5-4.9); POTASSIUM 5.1 mmol/L (3.5-5.1); UREA NITROGEN, BLOOD 20 mg/dL (7-18)
--- NOTE | 2022-03-28 06:00 | NUR ---
TF Glucerna 1.2 off [id number].
--- NOTE | 2022-03-28 06:00 | NUR ---
G done c/o RT Erik.
[2022-03-28 06:14] LABS: ABG PCO2 60.2 mmHg (35.0-45.0); ABG PH 7.382 (7.350-7.450); ABG PO2 112.1 mmHg (75.0-100.0); ABG SITE LEFT RADIAL; ABG TOTAL HEMOGLOBIN 12.4 G/dL (13.5-18.0); COHb 0.8 % (0.5-1.5); MetHb 0.1 % (0.0-1.5); O2Hb 97.7 % (94.0-97.0); VENT MODE Nasal Cannula
--- NOTE | 2022-03-28 06:15 | NUR ---
Placed on RA, tolerating well, O2 sat 95%. Will continue to monitor closely.
--- NOTE | 2022-03-28 07:00 | NUR ---
Patient pulled out NG tube. Reinserted NG at right nare. Stat chest xray ordered for NG placement. Endorsed.
[2022-03-28] MEDS ORDERED: MAGNESIUM SULFATE/D5W 100 ML IV SCH (09:15)
[2022-03-28] MEDS: SULFAMETH/TRIMETH 800/160 MG TABLET PO SCH ×2 (10:03→21:05)
[2022-03-28] MEDS: PANTOPRAZOLE ORAL SUSPENSION 40 MG SUSPDR.PKT GT SCH (10:04)
[2022-03-28] MEDS: methylPREDNISolone SOD SUCC 40 MG/ML VIAL IV SCH ×2 (10:04→21:05)
[2022-03-28] MEDS: ENOXAPARIN SODIUM 40 MG/0.4 ML DISP.SYRIN SQ SCH (10:04)
[2022-03-28] MEDS: ACETAzolamide SODIUM 500 MG VIAL IV SCH (10:06)
[2022-03-28] MEDS: MAGNESIUM SULFATE/D5W 100 ML IV SCH ×2 (10:06→10:07)
[2022-03-28] MEDS: REMEDY ESSENTIAL ZINC PASTE 113 GM TOP SCH ×2 (10:07→21:05)
[2022-03-29] VITALS (23 sets, daily range): BP systolic 88–165; BP diastolic 51–115
[2022-03-29] MEDS: IPRATROPIUM BROMIDE 0.5 MG/2.5 ML NEBU NEB SCH ×7 (00:05→23:59)
[2022-03-29] MEDS: LEVALBUTEROL HCL NEB 0.63 MG/3 ML NEBU NEB SCH ×7 (00:05→23:59)
[2022-03-29 05:58] LABS: HEMATOCRIT 35.2 % (36.7-47.1); MEAN CORPUSCULAR HEMOGLOBIN 22.2 uug (23.8-33.4); MEAN CORPUSCULAR VOLUME 70.1 fL (73.0-96.2); PLATELET COUNT (AUTO) 328 K/uL (152-348)
[2022-03-29 06:21] LABS: CARBON DIOXIDE 34 mmol/L (21-32); CHLORIDE 95 mmol/L (98-107); CREATININE 0.3 mg/dL (0.6-1.3); GLUCOSE 293 mg/dL (74-106); MAGNESIUM 1.9 mg/dL (1.8-2.4); PHOSPHOROUS 3.6 mg/dL (2.5-4.9); POTASSIUM 4.8 mmol/L (3.5-5.1); UREA NITROGEN, BLOOD 23 mg/dL (7-18)
[2022-03-29] MEDS: BLOOD SUGAR DIAGNOSTIC 1 EACH STRIP VI SCH ×4 (06:35→23:46)
[2022-03-29] MEDS: INSULIN REGULAR, HUMAN 300 UNIT/3 ML VIAL SQ PRN ×3 (06:39→18:44)
[2022-03-29] MEDS: methylPREDNISolone SOD SUCC 40 MG/ML VIAL IV SCH ×2 (09:27→20:05)
[2022-03-29] MEDS: ACETAzolamide SODIUM 500 MG VIAL IV SCH (09:27)
[2022-03-29] MEDS: PANTOPRAZOLE ORAL SUSPENSION 40 MG SUSPDR.PKT GT SCH (09:28)
[2022-03-29] MEDS: ENOXAPARIN SODIUM 40 MG/0.4 ML DISP.SYRIN SQ SCH (09:31)
[2022-03-29] MEDS: GLUCERNA 1.2 1000ML LIQUID GT PRN (09:46)
[2022-03-29] MEDS: SULFAMETH/TRIMETH 800/160 MG TABLET PO SCH ×2 (09:54→20:09)
[2022-03-29] MEDS: MUPIROCIN 2% OINT 22 GM TUBE NS SCH ×2 (09:54→20:08)
[2022-03-29] MEDS: REMEDY ESSENTIAL ZINC PASTE 113 GM TOP SCH ×2 (09:54→20:05)
--- NOTE | 2022-03-29 10:00 | NUR ---
Patient placed on BiPap machine.
--- NOTE | 2022-03-29 15:15 | NUR ---
Patient taken off BiPap.
--- NOTE | 2022-03-29 19:15 | NUR ---
received patient off BIPAP ,on room air ,saturation 96 % rr 23 hr 121, breathing even and unlabored . no respiratory distress noted patient watching tv.
[2022-03-29] MEDS: LORAZEPAM 0.5 MG TABLET GT PRN (20:05)
--- NOTE | 2022-03-29 20:09 | NUR ---
due medication crushed and given via the NGT , flushed NGT with water, tube feeding in progress patient on Jevity TF , hob up aspiration precaution observed .
[2022-03-29] MEDS: ACETAMINOPHEN 650 MG/20.3 ML LIQUID UDC GT PRN (20:30)
--- NOTE | 2022-03-29 20:30 | NUR ---
patient stated he wants the mask and reaching to the bipap machine . hr 141,rr23, saturation 82 and patient very anxious .respiratory therapist at b/s placed patient on bipap 15/5 rate 20 fio2 33%.
--- NOTE | 2022-03-29 20:59 | NUR ---
patient calm and relax ,bp 112/65 hr 137 saturation 100% rr 18.breathing even and unlabored .
[2022-03-30] VITALS (23 sets, daily range): BP systolic 50–141; BP diastolic 33–79
[2022-03-30] MEDS: INSULIN REGULAR, HUMAN 300 UNIT/3 ML VIAL SQ PRN ×4 (00:04→23:30)
[2022-03-30] MEDS: IPRATROPIUM BROMIDE 0.5 MG/2.5 ML NEBU NEB SCH ×5 (03:30→19:00)
[2022-03-30] MEDS: LEVALBUTEROL HCL NEB 0.63 MG/3 ML NEBU NEB SCH ×5 (03:30→19:00)
--- NOTE | 2022-03-30 03:30 | NUR ---
am care done bath patient changed soiled linens and gown ,Calero care done,oral care moss suction via mouth and via nasopharyngeal .
--- NOTE | 2022-03-30 04:21 | NUR ---
Patient received on Room air, mild tachypnea and tachycardia noted. Face mask breathing treatment administered. Suctioned PRN thick white secretions, patient has weak cough and vocalization. Patient requesting BiPAP immediately after treatment, stating it helps with his pain. Anxiety noted. RN administered medicinal interventions for high anxiety and pain expressed by patient. @ 0910 Patient exhibiting increased anxiety and agitation HR noted >130 with RR >30, Spo2 ~88-89%. Patient was subsequently placed on BiPAP 15/5 BUR20, 30% FiO2. FiO2 titrated to 21%. HR down to low 100's, SpO2 remains > 92% on 21%FiO2. Inline treatments administered/tolerated well without complications. Will remove patient from BiPAP @ 0500 for AM ABG. Alarms assessed and are on/audible. V60 BiPAP plugged in to red outlet/ AMBUBAG at bedside. Will continue to monitor.
--- NOTE | 2022-03-30 05:00 | NUR ---
respiratory therapist at b/s ,patient now off bipap .
[2022-03-30] MEDS: BLOOD SUGAR DIAGNOSTIC 1 EACH STRIP VI SCH ×4 (05:53→23:26)
--- NOTE | 2022-03-30 06:00 | NUR ---
on room AIR saturation 98 ,rr 24, bp 119/67 , hr 120. in bed resting ,awake ,able to call for help patient verbally responsive .
[2022-03-30 06:09] LABS: ABG BASE EXCESS -0.2 mmol/L; ABG HCO3 25.6 mmol/L; ABG PCO2 46.3 mmHg (35.0-45.0); ABG PO2 75.3 mmHg (75.0-100.0); ABG SITE LEFT RADIAL; ABG TOTAL HEMOGLOBIN 12.5 G/dL (13.5-18.0); COHb 0.7 % (0.5-1.5); O2Hb 94.1 % (94.0-97.0); VENT MODE Room Air
[2022-03-30 06:11] LABS: HEMATOCRIT 35.2 % (36.7-47.1); MEAN CORPUSCULAR HEMOGLOBIN 22.6 uug (23.8-33.4); MEAN CORPUSCULAR VOLUME 70.1 fL (73.0-96.2); PLATELET COUNT (AUTO) 341 K/uL (152-348)
[2022-03-30 06:15] LABS: CARBON DIOXIDE 32 mmol/L (21-32); CHLORIDE 97 mmol/L (98-107); CREATININE 0.4 mg/dL (0.6-1.3); GLUCOSE 267 mg/dL (74-106); MAGNESIUM 1.9 mg/dL (1.8-2.4); PHOSPHOROUS 3.5 mg/dL (2.5-4.9); POTASSIUM 4.6 mmol/L (3.5-5.1); UREA NITROGEN, BLOOD 27 mg/dL (7-18)
--- NOTE | 2022-03-30 08:00 | NUR ---
Received patient awake alert and oriented x 2-3. Denies pain or SOB. On RA. PICC on the right upper arm remains patent and intact. SR ST in the monitor. Oral care provided. Calero care provided, urine is clear and yellow. senior living assessment done, no new skin issues noted. Sacral redness is evident, foam dressing is in place. Safety initiated. Call light within reach. Will continue to monitor.
[2022-03-30] MEDS: ACETAzolamide SODIUM 500 MG VIAL IV SCH (08:30)
[2022-03-30] MEDS: methylPREDNISolone SOD SUCC 40 MG/ML VIAL IV SCH ×2 (08:30→20:46)
[2022-03-30] MEDS: PANTOPRAZOLE ORAL SUSPENSION 40 MG SUSPDR.PKT GT SCH (08:30)
[2022-03-30] MEDS: REMEDY ESSENTIAL ZINC PASTE 113 GM TOP SCH ×2 (08:31→20:47)
[2022-03-30] MEDS: MUPIROCIN 2% OINT 22 GM TUBE NS SCH ×2 (08:31→20:46)
[2022-03-30] MEDS: GLUCERNA 1.2 1000ML LIQUID GT PRN (08:36)
--- NOTE | 2022-03-30 09:30 | NUR ---
Automobile Appraiser at bedside. Updates given, no new orders.
[2022-03-30] MEDS: ENOXAPARIN SODIUM 40 MG/0.4 ML DISP.SYRIN SQ SCH (10:44)
[2022-03-30] MEDS: ACETAMINOPHEN 650 MG SUPP.RECT RC PRN (11:06)
--- NOTE | 2022-03-30 20:50 | NUR ---
Patient complaining of chest pain, VS HR 125, BP 100/63, O2 sat 98%. NAD. Called [facility] and spoke with Parker Baig SCALE CLERK. Per Safia to do stat ekg. Noted and carried out. Will continue to monitor closely.
[2022-03-30] MEDS: ACETAMINOPHEN 650 MG/20.3 ML LIQUID UDC GT PRN (20:59)
[2022-03-30] MEDS: LORAZEPAM 0.5 MG TABLET GT PRN (20:59)
[2022-03-30] MEDS ORDERED: METOPROLOL TARTRATE 5 MG/5 ML VIAL IVP PRN (22:00)
[2022-03-30] MEDS ORDERED: PHENYLEPHRINE IV 100 MG in IV NORMAL SALINE 240 ML IV PRN (22:00)
[2022-03-30] MEDS: NITROGLYCERIN 0.4 MG/TAB BOTTLE SL PRN ×2 (22:17→22:53)
[2022-03-30] MEDS: NITROGLYCERIN OINT 1 GM PACKET TP SCH ×2 (22:22→23:25)
--- NOTE | 2022-03-30 22:30 | NUR ---
Placed on Bipap as ordered c/o RT Tracey.
--- NOTE | 2022-03-30 23:00 | NUR ---
BP drop to 50/33. Modified trendelenburg done. Addendum: 03/31/22 at 0109 by Yvonne Hurley RN Neosynephrine unavailable. Called supervisor of communications Tim DUMONT regarding patient's medication. Called DIAN THIBODEAUX regarding patient's condition.
--- NOTE | 2022-03-30 23:15 | NUR ---
ER Dr Mercado ordered to give NS 1L bolus now. Per Dr Mercado, if BP is still low give another 1L of NS. Noted and carried out.
[2022-03-30] MEDS ORDERED: PHENYLEPHRINE 10 MG/1 ML VIAL ONE (23:19)
--- NOTE | 2022-03-30 23:22 | NUR ---
BP went up to 80/48. HR 123, O2 sat 97%. Will continue to monitor closely.
[2022-03-30] MEDS ORDERED: HEPARIN/D5W DRIP 500 ML ONE (23:29)
[2022-03-30] MEDS ORDERED: HEPARIN SODIUM,PORCINE 5,000 UNITS/ML VIAL IV ONE (23:30)
[2022-03-30] MEDS ORDERED: IV NS 1000 ML 1,000 ML IV STA (23:41)
[2022-03-30] MEDS: HEPARIN/D5W DRIP 500 ML IV PRN (23:57)
[2022-03-31] VITALS (23 sets, daily range): BP systolic 97–177; BP diastolic 53–95
[2022-03-31] MEDS: IPRATROPIUM BROMIDE 0.5 MG/2.5 ML NEBU NEB SCH ×7 (00:17→23:29)
[2022-03-31] MEDS: LEVALBUTEROL HCL NEB 0.63 MG/3 ML NEBU NEB SCH ×7 (00:17→23:29)
--- NOTE | 2022-03-31 00:45 | NUR ---
Bipap mask removed per patient's request and placed on RA. RT Tracey made aware. Will continue to monitor closely.
--- NOTE | 2022-03-31 00:50 | NUR ---
RN TOOK PT OFF BIPAP PER PT REQUEST.
--- NOTE | 2022-03-31 01:44 | NUR ---
PT PLACED BACK ON BIPAP. PER PT REQUEST
--- NOTE | 2022-03-31 01:44 | NUR ---
Patient requested to be placed on the bipap machine. Notified RT Tracey. Placed on bipap machine c/o RT Tracey. Will continue to monitor closely.
[2022-03-31] MEDS: NITROGLYCERIN OINT 1 GM PACKET TP SCH ×3 (05:35→18:38)
[2022-03-31] MEDS: BLOOD SUGAR DIAGNOSTIC 1 EACH STRIP VI SCH ×3 (05:58→18:38)
--- NOTE | 2022-03-31 06:00 | NUR ---
TF Glucerna 1.2 off [id number].
--- NOTE | 2022-03-31 06:06 | NUR ---
Removed bipap machine per patient's request and placed on RA, tolerating well Os sat 100%. Notified RT Tracey. Will continue to monitor closely.
[2022-03-31] MEDS: INSULIN REGULAR, HUMAN 300 UNIT/3 ML VIAL SQ PRN (06:36)
--- NOTE | 2022-03-31 06:40 | NUR ---
Patient transferred from CCU 1 to ER 1B via hospital bed, hooked to athletic monitor, accompanied by 2 staff members, without any incident. Left patient awake, alert. VSS. NAD. Endorsed to AM shift for continuity of care.
[2022-03-31 06:53] LABS: CARBON DIOXIDE 30 mmol/L (21-32); CHLORIDE 96 mmol/L (98-107); CREATININE 0.3 mg/dL (0.6-1.3); MAGNESIUM 1.7 mg/dL (1.8-2.4); PHOSPHOROUS 3.9 mg/dL (2.5-4.9); POTASSIUM 4.2 mmol/L (3.5-5.1); UREA NITROGEN, BLOOD 27 mg/dL (7-18)
[2022-03-31 06:54] LABS: HEMATOCRIT 33.8 % (36.7-47.1); MEAN CORPUSCULAR HEMOGLOBIN 22.6 uug (23.8-33.4); MEAN CORPUSCULAR VOLUME 70.3 fL (73.0-96.2); PLATELET COUNT (AUTO) 330 K/uL (152-348)
[2022-03-31] MEDS ORDERED: IPRATROPIUM BROMIDE 0.5 MG/2.5 ML NEBU ONE ×5 (07:19→23:24)
[2022-03-31 08:50] LABS: GLUCOSE 396 mg/dL (74-106)
[2022-03-31] MEDS: PANTOPRAZOLE ORAL SUSPENSION 40 MG SUSPDR.PKT GT SCH (09:00)
[2022-03-31] MEDS ORDERED: methylPREDNISolone SOD SUCC 40 MG/ML VIAL ONE ×2 (10:39→21:25)
[2022-03-31] MEDS ORDERED: ACETAzolamide SODIUM 500 MG VIAL ONE (10:39)
[2022-03-31] MEDS ORDERED: MAGNESIUM SULFATE/D5W 0 ML ONE (10:41)
[2022-03-31] MEDS: methylPREDNISolone SOD SUCC 40 MG/ML VIAL IV SCH ×2 (10:45→21:30)
[2022-03-31] MEDS: MAGNESIUM SULFATE/D5W 100 ML IV SCH ×2 (10:45→12:07)
[2022-03-31] MEDS: ACETAzolamide SODIUM 500 MG VIAL IV SCH (10:45)
[2022-03-31] MEDS: REMEDY ESSENTIAL ZINC PASTE 113 GM TOP SCH ×2 (10:46→21:50)
[2022-03-31] MEDS: MUPIROCIN 2% OINT 22 GM TUBE NS SCH ×2 (10:46→21:49)
[2022-03-31] MEDS ORDERED: MAGNESIUM SULFATE/D5W 100 ML ONE (12:05)
[2022-03-31] MEDS: NITROGLYCERIN 0.4 MG/TAB BOTTLE SL PRN (12:08)
[2022-03-31] MEDS ORDERED: NITROGLYCERIN OINT 1 GM PACKET TP ONE ×2 (12:09→18:26)
[2022-03-31] MEDS ORDERED: LEVALBUTEROL HCL NEB 0.63 MG/3 ML NEBU ONE ×2 (20:11→23:23)
[2022-03-31] MEDS ORDERED: ONDANSETRON 4 MG/2 ML VIAL ONE (21:26)
[2022-03-31] MEDS ORDERED: ACETAMINOPHEN 650 MG/20.3 ML LIQUID UDC ONE (21:56)
[2022-03-31] MEDS: ACETAMINOPHEN 650 MG/20.3 ML LIQUID UDC GT PRN (21:58)
--- NOTE | 2022-03-31 22:08 | NUR ---
PATIENT RECEIVED AWAKE IN BED WITH ROOM AIR. RT AT THE BEDSIDE. BREATHING TREATMENT IN PROGRESS. PT NOTED USING THE ACCESSORY MUCLES IN THE NECK. PER RT PT WILL BE BACK ON BIPAP AT 2300. BP 146/82, HR 122, RR 24. TUBE FEEDING,IN PROGRESS ORDERED, VIA R NARE NGT. BETTENCOURT TO GRAVITY. URINE CLEAR YELLOW. PICC LINE IN ADARSH HEPARIN FRIP INFUSIN AT 985 UINITS/HR.
--- NOTE | 2022-03-31 22:17 | NUR ---
BREATH SOUBS ARE NDIMINISHED. PT C/O ANXIETY AND HEADACHE. WILL MEDICATE ORDERED. LAB RESULTS PENDING FOR LAST PTT. ZOFRAN ADMINISTERE ORDERED. PT C/O HYNGER AND VERBALIZE BY WRITING HIS URGE TO EAT COOKIES AND COFEE.NORIFIED I=ONCALL PRACTITIONER MINH. OBTAINED ORDER FOR SWALLOW EVAL. PT IS RESTING WITHOUT INCIDENCE.
--- NOTE | 2022-03-31 23:24 | NUR ---
PER LAB PTT REPORT READS 'NO COAGULATIOn". PT IS ON HEP[KRISTYN DRIO AT 985 UNITS/HR. GARTH CARCAMO NOTIFIED. STAT ORDER RN PLACE PER TO FROM GARTH CARCAMO TO REPEAT PTT.
--- NOTE | 2022-03-31 23:38 | NUR ---
BREATHING IN PROGRESS PT HR 123. AUTOMATED PROCESS OPERATOR IN TO DRAW SPECIMEN. T
[2022-03-31] MEDS ORDERED: LORAZEPAM 0.5 MG TABLET ONE (23:45)
[2022-03-31] MEDS: LORAZEPAM 0.5 MG TABLET GT PRN (23:49)
[2022-04-01] VITALS (62 sets, daily range): BP systolic 68–152; BP diastolic 42–88
[2022-04-01] MEDS ORDERED: PHENYLEPHRINE 10 MG/1 ML VIAL ONE ×2 (00:05→00:11)
--- NOTE | 2022-04-01 00:30 | NUR ---
NEOSYNEPHRINE DRIP INITIATED FOR SBP 77. PT WAS ASLEREP. AND IS RESPONSIVE TO PAINFUL STIMULUS. PALPABLE RADIAL PULSES NOTED. NURSING APPLICATIONS ENGINEER CALLED TO INFORM OF PT'S STATUS. PAGEF TO UPDATE OF SAME.
[2022-04-01] MEDS: PHENYLEPHRINE IV 100 MG in IV NORMAL SALINE 240 ML IV PRN ×2 (00:51→22:48)
[2022-04-01] MEDS: BLOOD SUGAR DIAGNOSTIC 1 EACH STRIP VI SCH ×4 (00:52→18:12)
--- NOTE | 2022-04-01 00:55 | NUR ---
DR STRINGER NOTIFIED OF PATIENTS STATUS. MD REQUEST ONLY TO BE CALLED IF PATIENTS HAS A MAP OF LESS THAN 65 IF REACH MAX DOSAGE ON NEOSYNEPHRINE.
--- NOTE | 2022-04-01 01:07 | NUR ---
PTT PER LAB 124.6. HEPARIN DRIP HELD PER PROTOCOL. WILL FOLLOW PROTOCOL MTO RESUME IN AN HOUR
--- NOTE | 2022-04-01 01:08 | NUR ---
BP 112/86, HR 70 RR 23. , O2SAT 99. PT IS ASLEEP.
--- NOTE | 2022-04-01 02:00 | NUR ---
RESUME HEPARIN DRIP PER ORDER AND FOLLOW HEPARIN PROTOCOL. HEPARIN DRIP RESUME AT 785 UNITS/HR. NEOSYNEPHRINE TITRATE TO TO KEEP MAP GREATER THAN 65.EKG CHANGES NOTED. SINUS RHYTHM WITH BBB. PT IS ASLEEP.
[2022-04-01] MEDS: HEPARIN/D5W DRIP 500 ML IV PRN (02:53)
--- NOTE | 2022-04-01 03:22 | NUR ---
PVS WNL NOTED ON NURSE FLOW RECORD, BP O4/63 ON NEOSYNEPHRINE AT 1.8 MCG/KG/MIN.
[2022-04-01] MEDS: IPRATROPIUM BROMIDE 0.5 MG/2.5 ML NEBU NEB SCH ×6 (03:47→23:09)
[2022-04-01] MEDS: LEVALBUTEROL HCL NEB 0.63 MG/3 ML NEBU NEB SCH ×6 (03:48→23:09)
[2022-04-01 04:49] LABS: CARBON DIOXIDE 33 mmol/L (21-32); CHLORIDE 98 mmol/L (98-107); CREATININE 0.3 mg/dL (0.6-1.3); GLUCOSE 244 mg/dL (74-106); MAGNESIUM 1.8 mg/dL (1.8-2.4); POTASSIUM 4.5 mmol/L (3.5-5.1); UREA NITROGEN, BLOOD 22 mg/dL (7-18)
--- NOTE | 2022-04-01 05:52 | NUR ---
BIPAP REMOVED BY RT HR 108 . PT IS FULLY AWAKE ALERT AND ORIENTED TIMES ALL. SPEECH IS PRESENT A WISPER.
[2022-04-01] MEDS ORDERED: INSULIN REGULAR, HUMAN 300 UNIT/3 ML VIAL ONE ×2 (05:59→06:05)
[2022-04-01] MEDS: NITROGLYCERIN OINT 1 GM PACKET TP SCH ×4 (06:00→18:00)
[2022-04-01] MEDS: INSULIN REGULAR, HUMAN 300 UNIT/3 ML VIAL SQ PRN ×3 (06:07→18:24)
[2022-04-01 06:14] LABS: ABG BASE EXCESS 3.9 mmol/L; ABG HCO3 30.5 mmol/L; ABG PCO2 55.5 mmHg (35.0-45.0); ABG PH 7.358 (7.350-7.450); ABG SITE LEFT RADIAL; COHb 0.9 % (0.5-1.5); O2Hb 90.5 % (94.0-97.0); VENT MODE room air
--- NOTE | 2022-04-01 06:40 | NUR ---
ABG 55. PT IS ON ROOM AIR. NEOSYNEPHRINE DRIP REMAINS OFF. PT IS AWAKE ALERT AND TALKATIVE. PT WISHES TO HAVE COOKIES AND COFFEE. PT SWALLOW EVAL PENDING. HEPARIN DRIP INFUSING AT 785 UNITS/HU VIA ADARSH PICC. NO BLEEDING. CO C/O CHEST PAIN. TURNED AND REPOSITIONED. HOB 45.NGT FEED ON HOLD.
--- NOTE | 2022-04-01 08:00 | NUR ---
Received patient awake alert and oriented x 2-3. Denies pain or SOB. On RA. PICC on the right upper arm remains patent and intact. SR ST in the monitor. Heparin drip at 785. Oral care provided. Calero care provided, urine is clear and yellow. retirement assessment done, no new skin issues noted. Sacral redness is evident, foam dressing is in place. Safety initiated. Call light within reach. Will continue to monitor.
--- NOTE | 2022-04-01 08:04 | NUR ---
ENDORSE REPORT OF THE PATIEN'S STATUS TO MORNING RN. PT IS RESTING IN BED AWAKE WITHOUT DISTRESS. NO ADVERSE RESACTION FROM NEOSYNEPHRNE DRIP.
[2022-04-01] MEDS ORDERED: IPRATROPIUM BROMIDE 0.5 MG/2.5 ML NEBU ONE ×3 (08:27→14:06)
[2022-04-01] MEDS ORDERED: LEVALBUTEROL HCL NEB 0.63 MG/3 ML NEBU ONE ×3 (08:27→14:06)
[2022-04-01] MEDS ORDERED: ACETAzolamide SODIUM 500 MG VIAL ONE (08:57)
[2022-04-01] MEDS ORDERED: methylPREDNISolone SOD SUCC 40 MG/ML VIAL ONE (08:57)
[2022-04-01] MEDS: methylPREDNISolone SOD SUCC 40 MG/ML VIAL IV SCH ×2 (09:01→20:56)
[2022-04-01] MEDS: ACETAzolamide SODIUM 500 MG VIAL IV SCH (09:01)
[2022-04-01] MEDS: MUPIROCIN 2% OINT 22 GM TUBE NS SCH ×2 (09:02→20:57)
[2022-04-01] MEDS: REMEDY ESSENTIAL ZINC PASTE 113 GM TOP SCH ×2 (09:02→20:58)
[2022-04-01] MEDS: PANTOPRAZOLE ORAL SUSPENSION 40 MG SUSPDR.PKT GT SCH (09:11)
--- NOTE | 2022-04-01 09:15 | NUR ---
Restarted Heparin Drip at 585 per protocol and based on the most recent PTT of 111.8. It was held for 1 hour per protocol. Will closely monitor.
[2022-04-01] MEDS ORDERED: ACETAMINOPHEN 650 MG/20.3 ML LIQUID UDC ONE (10:10)
[2022-04-01] MEDS: ACETAMINOPHEN 650 MG/20.3 ML LIQUID UDC GT PRN (10:11)
--- NOTE | 2022-04-01 10:20 | NUR ---
PT and CARBON SEQUESTRATION PLANT MANAGER at bedside. Will closely monitor.
--- NOTE | 2022-04-01 10:26 | NUR ---
OT at bedside. Will continue to monitor.
[2022-04-01] MEDS ORDERED: METOPROLOL TARTRATE 5 MG/5 ML VIAL IVP ONE (10:41)
--- NOTE | 2022-04-01 11:22 | NUR ---
Ama THURSTON is at bedside. Pt O2 level in the low 90's, pt request to have BiPAP on. Will closely monitor.
[2022-04-01] MEDS ORDERED: METOPROLOL TARTRATE 25 MG TABLET PO SCH (11:30)
--- NOTE | 2022-04-01 11:35 | NUR ---
RT at bedside to place pt back on BiPAP machine.
[2022-04-01] MEDS ORDERED: METOPROLOL TARTRATE 25 MG TABLET PO PRN (11:45)
--- NOTE | 2022-04-01 12:00 | NUR ---
BP 79/54 HR 90. Started pt back on Neosynephrine at 1.2 mcgs.
--- NOTE | 2022-04-01 12:00 | NUR ---
Speech therapist at bedside, she mention that pt is not ready to advance diet. Please refer to Speech Therapy notes.
--- NOTE | 2022-04-01 17:23 | NUR ---
Oral care provided. Calero care provided. Pt remains on BiPAP 15/5 rate of 20 FiOS 21%. Pt SBP is maintained > 90 with Neosynephrine at 1.4 mcgs. Will continue to monitor.
--- NOTE | 2022-04-01 19:30 | NUR ---
Received pt. on BIPAP 15/5 Rate of 20 and FIO2 21% and saturation of 92-94%. On Sinus tachycardia with sbp maintained by neosyneprine. Calero to gravity. NG in place with feeding running at goal therapy.
[2022-04-02] VITALS (71 sets, daily range): BP systolic 72–167; BP diastolic 41–96
[2022-04-02] MEDS: BLOOD SUGAR DIAGNOSTIC 1 EACH STRIP VI SCH ×5 (00:55→23:09)
[2022-04-02] MEDS: INSULIN REGULAR, HUMAN 300 UNIT/3 ML VIAL SQ PRN ×5 (00:57→23:10)
--- NOTE | 2022-04-02 01:50 | NUR ---
Patient with a period of desaturation down to the 60-70's with oral care and suctioning done with no improvement. FIO2 up to 35%. Will continue to monitor.
[2022-04-02] MEDS: ACETAMINOPHEN 650 MG/20.3 ML LIQUID UDC GT PRN (02:14)
[2022-04-02] MEDS: LORAZEPAM 0.5 MG TABLET GT PRN ×2 (02:14→11:38)
[2022-04-02] MEDS: IPRATROPIUM BROMIDE 0.5 MG/2.5 ML NEBU NEB SCH ×6 (03:46→22:57)
[2022-04-02] MEDS: LEVALBUTEROL HCL NEB 0.63 MG/3 ML NEBU NEB SCH ×6 (03:47→22:57)
[2022-04-02 05:05] LABS: CARBON DIOXIDE 33 mmol/L (21-32); CHLORIDE 96 mmol/L (98-107); CREATININE 0.3 mg/dL (0.6-1.3); GLUCOSE 228 mg/dL (74-106); MAGNESIUM 1.7 mg/dL (1.8-2.4); POTASSIUM 4.3 mmol/L (3.5-5.1); UREA NITROGEN, BLOOD 17 mg/dL (7-18)
[2022-04-02] MEDS: NITROGLYCERIN OINT 1 GM PACKET TP SCH ×5 (05:11→23:34)
[2022-04-02 05:21] LABS: HEMATOCRIT 36.8 % (36.7-47.1); MEAN CORPUSCULAR HEMOGLOBIN 22.6 uug (23.8-33.4); MEAN CORPUSCULAR VOLUME 71.3 fL (73.0-96.2); PLATELET COUNT (AUTO) 293 K/uL (152-348)
--- NOTE | 2022-04-02 07:30 | NUR ---
Report given to rn. Graf
--- NOTE | 2022-04-02 08:00 | NUR ---
Received patient asleep, arousal to name and painful stimuli. On the BIPAP. PICC on the right upper arm remains patent and intact. SR in the monitor. Heparin drip at 585 per protocol. Oral care provided. Calero care provided, urine is cloudy and yellow. [facility] assessment done, no new skin issues noted. Sacral redness is evident, foam dressing is in place. Safety initiated. Call light within reach. Will continue to monitor.
[2022-04-02] MEDS: ACETAzolamide SODIUM 500 MG VIAL IV SCH (08:02)
[2022-04-02] MEDS: PANTOPRAZOLE ORAL SUSPENSION 40 MG SUSPDR.PKT GT SCH (08:03)
[2022-04-02] MEDS: methylPREDNISolone SOD SUCC 40 MG/ML VIAL IV SCH ×2 (08:03→20:20)
[2022-04-02] MEDS: MUPIROCIN 2% OINT 22 GM TUBE NS SCH ×2 (08:03→20:21)
[2022-04-02] MEDS: REMEDY ESSENTIAL ZINC PASTE 113 GM TOP SCH ×2 (08:03→20:21)
--- NOTE | 2022-04-02 10:30 | NUR ---
Off BiPAP. OT at bedside, pt able to participate and follow commands. Will continue to monitor.
[2022-04-02] MEDS: MAGNESIUM SULFATE/D5W 100 ML IV SCH ×2 (10:39→11:38)
--- NOTE | 2022-04-02 11:23 | NUR ---
Pt off BiPAP at the moment. O2 sat is 100% HR 88. RT is at bedside providing breathing tx. Will closely monitor.
[2022-04-02] MEDS: HEPARIN/D5W DRIP 500 ML IV PRN (11:55)
[2022-04-02] MEDS: PHENYLEPHRINE IV 100 MG in IV NORMAL SALINE 240 ML IV PRN (11:58)
--- NOTE | 2022-04-02 16:29 | NUR ---
Pt is tachypneic. HR 119, RR 35, O2 sat 95% in room air. Pt would like BiPAP back on. RT at bedside giving breathing tx and will place BiPAP back on. Will continue to monitor.
--- NOTE | 2022-04-02 16:32 | NUR ---
Informed PAINT DIPPER Ugarte about pt's son wishes to discuss code status and treatment plan. Will continue to monitor.
--- NOTE | 2022-04-02 18:36 | NUR ---
BP started to drop to mid 70's/40's, increased Neosynephrine. Will continue to monitor BP.
--- NOTE | 2022-04-02 21:10 | NUR ---
Spoke with Valdez Ugarte NP with new orders. Per KARENA Ugarte to DC heparin drip and PTT lab. Noted and carried out.
[2022-04-02] MEDS: MORPHINE SULFATE 2 MG/1 ML DISP.SYRIN IV PRN (22:57)
[2022-04-03] VITALS (72 sets, daily range): BP systolic 52–163; BP diastolic 32–86
[2022-04-03] MEDS: PHENYLEPHRINE IV 100 MG in IV NORMAL SALINE 240 ML IV PRN ×2 (01:43→18:35)
[2022-04-03] MEDS: LEVALBUTEROL HCL NEB 0.63 MG/3 ML NEBU NEB SCH ×6 (03:27→23:11)
[2022-04-03] MEDS: IPRATROPIUM BROMIDE 0.5 MG/2.5 ML NEBU NEB SCH ×6 (03:27→23:11)
[2022-04-03 05:31] LABS: HEMATOCRIT 35.1 % (36.7-47.1); MEAN CORPUSCULAR HEMOGLOBIN 22.7 uug (23.8-33.4); MEAN CORPUSCULAR VOLUME 71.4 fL (73.0-96.2); PLATELET COUNT (AUTO) 298 K/uL (152-348)
[2022-04-03] MEDS: BLOOD SUGAR DIAGNOSTIC 1 EACH STRIP VI SCH ×4 (05:33→23:28)
[2022-04-03] MEDS: INSULIN REGULAR, HUMAN 300 UNIT/3 ML VIAL SQ PRN ×4 (05:34→23:29)
[2022-04-03 05:43] LABS: ALANINE AMINOTRANSFERASE 28 U/L (16-63); ALKALINE PHOSPHATASE 121 U/L (50-136); ASPARTATE AMINOTRANSFERASE 14 U/L (15-37); BILIRUBIN,DIRECT 0.1 mg/dL (0.0-0.2); BILIRUBIN,TOTAL 0.2 mg/dL (0.2-1.0); CARBON DIOXIDE 34 mmol/L (21-32); CHLORIDE 97 mmol/L (98-107); CREATININE 0.3 mg/dL (0.6-1.3); MAGNESIUM 1.8 mg/dL (1.8-2.4); PHOSPHOROUS 2.6 mg/dL (2.5-4.9); POTASSIUM 4.6 mmol/L (3.5-5.1); TOTAL PROTEIN, SERUM 5.4 g/dL (6.4-8.2); UREA NITROGEN, BLOOD 17 mg/dL (7-18)
[2022-04-03] MEDS: NITROGLYCERIN OINT 1 GM PACKET TP SCH ×4 (05:55→23:31)
--- NOTE | 2022-04-03 05:56 | NUR ---
X ray done at bedside c/o [employer].
--- NOTE | 2022-04-03 06:00 | NUR ---
TF Glucerna 1.2 off [id number].
[2022-04-03 06:26] LABS: GLUCOSE 323 mg/dL (74-106)
--- NOTE | 2022-04-03 06:27 | NUR ---
Lab called and spoke with Dat soliz: glucose 323. BS 246. Insulin sliding scale given as ordered. See emar.
--- NOTE | 2022-04-03 06:30 | NUR ---
Bipap removed and placed on RA c/o RT Erik, tolerating well O2 sat 99%. Will continue to monitor closely.
--- NOTE | 2022-04-03 07:30 | NUR ---
Received pt. off bipap and on room air with saturation above 95%. Pt. with c/of feeling short of breath. NG-T in place with feeding to be resumed at goal therapy. Calero catheter to gravity. IV line patent. Will continue to monitor.
[2022-04-03 08:37] LABS: ABG BASE EXCESS 4.2 mmol/L; ABG HCO3 29.4 mmol/L; ABG PCO2 46.2 mmHg (35.0-45.0); ABG PH 7.421 (7.350-7.450); ABG PO2 68.9 mmHg (75.0-100.0); ABG SITE RIGHT RADIAL; ABG TOTAL HEMOGLOBIN 12.3 G/dL (13.5-18.0); COHb 0.7 % (0.5-1.5); O2Hb 94.5 % (94.0-97.0); VENT MODE Room Air
[2022-04-03] MEDS: PANTOPRAZOLE ORAL SUSPENSION 40 MG SUSPDR.PKT GT SCH (08:40)
[2022-04-03] MEDS: ACETAMINOPHEN 650 MG/20.3 ML LIQUID UDC GT PRN ×2 (08:42→17:09)
[2022-04-03] MEDS: LORAZEPAM 0.5 MG TABLET GT PRN ×2 (08:43→17:09)
[2022-04-03] MEDS: methylPREDNISolone SOD SUCC 40 MG/ML VIAL IV SCH ×2 (08:43→20:31)
[2022-04-03] MEDS: MUPIROCIN 2% OINT 22 GM TUBE NS SCH ×2 (08:43→20:27)
[2022-04-03] MEDS: REMEDY ESSENTIAL ZINC PASTE 113 GM TOP SCH ×2 (08:44→20:32)
--- NOTE | 2022-04-03 08:59 | NUR ---
Pulmonary services Dr. Dewitt in the unit to see and examine pt. report given, orders to continue with care plan received.
[2022-04-03] MEDS: GLUCERNA 1.2 1000ML LIQUID GT PRN (09:30)
[2022-04-03] MEDS: MORPHINE SULFATE 2 MG/1 ML DISP.SYRIN IV PRN (16:03)
--- NOTE | 2022-04-03 16:15 | NUR ---
Cardiology services, Dr. Smith in the unit to examine pt. At this time pt. with heart rate in the 130's-140's with sbp within desire limits. Patient restless and requesting to be placed on ventilator. saturation at this time was 94-96%. and as requested by road worker pt. placed on BIPAP.
--- NOTE | 2022-04-03 17:03 | NUR ---
saturation of 98% patient off bipap and back on RA.
[2022-04-03] MEDS: METOPROLOL TARTRATE 25 MG TABLET PO SCH ×2 (17:12→20:26)
[2022-04-03] MEDS: ENOXAPARIN SODIUM 40 MG/0.4 ML DISP.SYRIN SQ SCH (17:13)
--- NOTE | 2022-04-03 17:24 | NUR ---
At this time pt. back of BIPAP 15/5, Rate of 20, and FIO2 28%. Hr in the 150's.
--- NOTE | 2022-04-03 19:15 | NUR ---
Pt had 1 large BM brown and soft in consistency. Bed bath done. Linen changed.
[2022-04-03] MEDS: INSULIN GLARGINE,HUM 300 UNITS/3 ML CARTRIDGE SQ SCH (21:13)
[2022-04-04] VITALS (70 sets, daily range): BP systolic 80–161; BP diastolic 41–88
[2022-04-04] MEDS: LEVALBUTEROL HCL NEB 0.63 MG/3 ML NEBU NEB SCH ×6 (04:08→23:01)
[2022-04-04] MEDS: IPRATROPIUM BROMIDE 0.5 MG/2.5 ML NEBU NEB SCH ×6 (04:08→23:00)
[2022-04-04 05:09] LABS: HEMATOCRIT 35.6 % (36.7-47.1); MEAN CORPUSCULAR HEMOGLOBIN 22.3 uug (23.8-33.4); MEAN CORPUSCULAR VOLUME 70.6 fL (73.0-96.2); PLATELET COUNT (AUTO) 279 K/uL (152-348)
[2022-04-04] MEDS: NITROGLYCERIN OINT 1 GM PACKET TP SCH ×5 (05:14→23:25)
[2022-04-04] MEDS: BLOOD SUGAR DIAGNOSTIC 1 EACH STRIP VI SCH ×4 (05:27→23:20)
[2022-04-04] MEDS: INSULIN REGULAR, HUMAN 300 UNIT/3 ML VIAL SQ PRN ×4 (05:29→23:21)
[2022-04-04 05:32] LABS: CARBON DIOXIDE 39 mmol/L (21-32); CHLORIDE 97 mmol/L (98-107); CREATININE 0.3 mg/dL (0.6-1.3); MAGNESIUM 1.7 mg/dL (1.8-2.4); PHOSPHOROUS 2.8 mg/dL (2.5-4.9); UREA NITROGEN, BLOOD 23 mg/dL (7-18)
[2022-04-04 05:36] LABS: GLUCOSE 304 mg/dL (74-106)
--- NOTE | 2022-04-04 05:36 | NUR ---
Lab called and spoke with Dat re: glucose 304. BS 264. Insulin sliding scale given as ordered. See emar.
--- NOTE | 2022-04-04 05:45 | NUR ---
Oxygen desaturated to 37%, RT at the other patient's room, called RT for help. Oral suctioning and deep suctioning done. Ambu bagging done, O2 sat went up to above 90%. Placed back to bipap machine c/o RT Evette, tolerating well, O2 sat 100%. Will continue to monitor closely.
--- NOTE | 2022-04-04 06:00 | NUR ---
RT PT DESATTED,BAGGED PATIENT AND SATS WENT BACK UP. PLACED BACK ON BIPAP AND TURN FIO2 TO 100%.
[2022-04-04] MEDS: MORPHINE SULFATE 2 MG/1 ML DISP.SYRIN IV PRN ×2 (06:03→21:49)
[2022-04-04] MEDS: REMEDY ESSENTIAL ZINC PASTE 113 GM TOP SCH ×2 (09:00→20:06)
[2022-04-04] MEDS ORDERED: MAGNESIUM OXIDE 400 MG TABLET GT ONE (09:30)
[2022-04-04] MEDS: LORAZEPAM 0.5 MG TABLET GT PRN ×2 (10:43→21:16)
[2022-04-04] MEDS: methylPREDNISolone SOD SUCC 40 MG/ML VIAL IV SCH ×2 (10:43→20:05)
[2022-04-04] MEDS: PANTOPRAZOLE ORAL SUSPENSION 40 MG SUSPDR.PKT GT SCH (10:43)
[2022-04-04] MEDS: METOPROLOL TARTRATE 25 MG TABLET PO SCH ×2 (10:43→20:08)
[2022-04-04] MEDS: MUPIROCIN 2% OINT 22 GM TUBE NS SCH ×2 (10:45→20:05)
[2022-04-04] MEDS: ENOXAPARIN SODIUM 40 MG/0.4 ML DISP.SYRIN SQ SCH (18:34)
[2022-04-04] MEDS: INSULIN GLARGINE,HUM 300 UNITS/3 ML CARTRIDGE SQ SCH (20:18)
[2022-04-04] MEDS: ACETAMINOPHEN 650 MG/20.3 ML LIQUID UDC GT PRN (21:16)
[2022-04-04] MEDS: PHENYLEPHRINE IV 100 MG in IV NORMAL SALINE 240 ML IV PRN (21:35)
[2022-04-05] VITALS (42 sets, daily range): BP systolic 87–161; BP diastolic 45–82
[2022-04-05] MEDS: IPRATROPIUM BROMIDE 0.5 MG/2.5 ML NEBU NEB SCH ×5 (03:14→21:10)
[2022-04-05] MEDS: LEVALBUTEROL HCL NEB 0.63 MG/3 ML NEBU NEB SCH ×5 (03:14→21:10)
[2022-04-05 05:11] LABS: MEAN CORPUSCULAR HEMOGLOBIN 22.5 uug (23.8-33.4); MEAN CORPUSCULAR VOLUME 70.9 fL (73.0-96.2); PLATELET COUNT (AUTO) 212 K/uL (152-348)
[2022-04-05 05:21] LABS: CHLORIDE 93 mmol/L (98-107); CREATININE 0.2 mg/dL (0.6-1.3); GLUCOSE 284 mg/dL (74-106); MAGNESIUM 1.7 mg/dL (1.8-2.4); PHOSPHOROUS 3.2 mg/dL (2.5-4.9); POTASSIUM 4.5 mmol/L (3.5-5.1); UREA NITROGEN, BLOOD 21 mg/dL (7-18)
[2022-04-05 05:33] LABS: CARBON DIOXIDE 40 mmol/L (21-32)
[2022-04-05] MEDS: BLOOD SUGAR DIAGNOSTIC 1 EACH STRIP VI SCH ×3 (06:02→18:15)
[2022-04-05] MEDS: INSULIN REGULAR, HUMAN 300 UNIT/3 ML VIAL SQ PRN ×3 (06:03→18:19)
[2022-04-05] MEDS: NITROGLYCERIN OINT 1 GM PACKET TP SCH ×2 (06:14→11:51)
--- NOTE | 2022-04-05 06:18 | NUR ---
Resting comfortably. No significant change of condition noted. AM care done. Linen changed. Will continue to monitor closely.
[2022-04-05] MEDS: MAGNESIUM SULFATE/D5W 100 ML IV SCH ×2 (08:16→09:35)
[2022-04-05 08:26] LABS: ABG BASE EXCESS 12.3 mmol/L; ABG HCO3 37.9 mmol/L; ABG PH 7.464 (7.350-7.450); ABG PO2 44.7 mmHg (75.0-100.0); ABG SITE RIGHT RADIAL; ABG TOTAL HEMOGLOBIN 11.7 G/dL (13.5-18.0); COHb 0.4 % (0.5-1.5); MetHb 0.2 % (0.0-1.5); O2Hb 84.3 % (94.0-97.0); VENT MODE Room Air
[2022-04-05] MEDS: METOPROLOL TARTRATE 25 MG TABLET PO SCH ×2 (09:35→20:31)
[2022-04-05] MEDS: PANTOPRAZOLE ORAL SUSPENSION 40 MG SUSPDR.PKT GT SCH (09:35)
[2022-04-05] MEDS: methylPREDNISolone SOD SUCC 40 MG/ML VIAL IV SCH ×2 (09:35→20:30)
[2022-04-05] MEDS: REMEDY ESSENTIAL ZINC PASTE 113 GM TOP SCH ×2 (09:36→20:31)
[2022-04-05] MEDS: MORPHINE SULFATE 2 MG/1 ML DISP.SYRIN IV PRN (10:31)
[2022-04-05] MEDS ORDERED: MORPHINE SULFATE 2 MG/1 ML DISP.SYRIN IV PRN (15:30)
[2022-04-05] MEDS: ENOXAPARIN SODIUM 40 MG/0.4 ML DISP.SYRIN SQ SCH (18:43)
[2022-04-05] MEDS: INSULIN GLARGINE,HUM 300 UNITS/3 ML CARTRIDGE SQ SCH (20:40)
--- NOTE | 2022-04-05 20:55 | NUR ---
2039 [facility] came for belt picker. 2054 Patient was discharge to [facility] and spoke with Evelyn regarding patient's transportation. Patient taken off from the monitor and bipap machine; tolerated well. Transferred patient via gurney with NC @3LPM accompanied by 2 clinical laboratory science professor, without any incident. Belonging (cellphone) sent with patient. No signs of acute distress noted. VS stable upon discharge. PICC and calderon catheter kept in place as ordered. Discharge packet with medication list given to clinical laboratory science professor.
== END 2022-04-05 20:55 | disposition hospice, home (50) | DRG 133 ==
LOC: ER 20:14 → TRANSITION 03-05 07:46 → CCU 03-05 08:00 → TRANSITION 03-16 08:41 → CCU 03-17 19:41 → TRANSITION 03-31 07:16 → CCU 04-01 20:02
PROVIDERS: ADMIT Registered Nurse; ATTEND Nurse Practitioner Family
PROC: 5A1945Z Respiratory Ventilation, 24-96 Consecutive Hours (ICD-10-PCS; principal; 2022-03-05)
PROC: 0BH17EZ Insertion of Endotracheal Airway into Trachea, Via Natural or Artificial Opening (ICD-10-PCS; principal; 2022-03-05)
PROC: 02HV33Z Insertion of Infusion Device into Superior Vena Cava, Percutaneous Approach (ICD-10-PCS; principal; 2022-03-05)
PROC: B548ZZA Ultrasonography of Superior Vena Cava, Guidance (ICD-10-PCS; principal; 2022-03-05)
PROC: 5A09557 Assistance with Respiratory Ventilation, Greater than 96 Consecutive Hours, Continuous Positive Airway Pressure (ICD-10-PCS; 2022-03-08)
DX: J96.21 Acute and chronic respiratory failure with hypoxia (principal); G93.41 Metabolic encephalopathy; I21.A1 Myocardial infarction type 2; E44.0 Moderate protein-calorie malnutrition; R64 Cachexia; E22.2 Syndrome of inappropriate secretion of antidiuretic hormone; I95.9 Hypotension, unspecified; R53.2 Functional quadriplegia; E88.09 Other disorders of plasma-protein metabolism, not elsewhere classified; E11.40 Type 2 diabetes mellitus with diabetic neuropathy, unspecified; B95.62 Methicillin resistant Staphylococcus aureus infection as the cause of diseases classified elsewhere; J44.1 Chronic obstructive pulmonary disease with (acute) exacerbation; R13.10 Dysphagia, unspecified; E87.6 Hypokalemia; R62.7 Adult failure to thrive; Z86.73 Personal history of transient ischemic attack (TIA), and cerebral infarction without residual deficits; N39.0 Urinary tract infection, site not specified; N40.1 Benign prostatic hyperplasia with lower urinary tract symptoms; Z68.22 Body mass index [BMI] 22.0-22.9, adult; J98.11 Atelectasis; I25.5 Ischemic cardiomyopathy; J20.9 Acute bronchitis, unspecified; N40.0 Benign prostatic hyperplasia without lower urinary tract symptoms; Z51.5 Encounter for palliative care; Z66 Do not resuscitate; R93.1 Abnormal findings on diagnostic imaging of heart and coronary circulation; E86.9 Volume depletion, unspecified; J96.22 Acute and chronic respiratory failure with hypercapnia; Z79.4 Long term (current) use of insulin
CPT/HCPCS: 36415; 36569; 36600; 70030-TC; 70450; 71045; 83605; 83735; 83935; 84100; 84300; 84443; 84484; 84550; 85025; 85730; 87040; 87070; 87086; 87400; 93005; 93307; 94002; 94003; 94640; 94660; 97161; 99082-TC; A4663; A6209; C9113; G0378; J0360; J0456; J0690; J0696; J1120; J1644; J1650; J1815; J1956; J2060; J2270; J2370; J2405; J2543; J2920; J2930; J3475; J3480; J3490; J3590; J7040; J7042; J7614